=== PATIENT | male | born 1965 | race Caucasian/White ===

== ENCOUNTER 2016-09-10 14:27 | Inpatient (IN) | payer OTHER ==
[~2016-09-10] VITALS: Ht 167.6 cm; Wt 68.0 kg
[~2016-09-10 14:27] MED LIST: DOCUSATE SODIU100 M3 PO; ELIQUIS2.5 M1 PO; FERROUS SULFAT325 M3 PO; HYDROCODON-ACE1 EAC2 PO; IBUPROFEN600 M1 PO; MIRALAX119 GM PO; MORPHINE SULFAT15 M3 PO; OMEPRAZOLE40 M1 PO; SENNA-TIME S T1 EACH PO; TRAMADOL HCL50 M1 PO; TYLENOL325 M1 PO
--- NOTE | 2016-09-10 14:57 | NUR ---
PT TO ED WITH FAMILY, PER "HE PASSED OUT TWICE". HAD CHEMO THERAPY ON SUNDAY "HE PASSED OUT AT THE DOCTOR OFFICE TOO". CALLED DR REINOSO, TOLD TO COME TO ED. HX VASOVAGAL PER
--- NOTE | 2016-09-10 15:15 | NUR ---
PT TO ROOM4, CHANGED INTO HOSPITAL GOWN, PLACED ON [employer] [address], O2SAT 98% ON RA, PT DENIES ANY SYMPTOMS AT THIS TIME. HANNAH SEVILLA AT BEDSIDE FOR PT EVAL.
[2016-09-10 15:42] LABS: ABSOLUTE BASOPHIL COUNT 0 /CUMM (0.0-0.2); ABSOLUTE EOSINOPHIL COUNT 0 /CUMM (0.0-0.7); ABSOLUTE LYMPH COUNT 1.3 /CUMM (1.2-3.4); ABSOLUTE MONOCYTE COUNT 0.7 /CUMM (0.10-0.60); BASOPHIL % 0.1 % (0.0-2.0); WHITE BLOOD CELL COUNT 9.1 /CUMM (4.8-10.8)
[2016-09-10 15:55] LABS: ABSOLUTE GRANULOCYTE CT 7.1 /CUMM (1.4-6.5); EOSINOPHIL % 0.2 % (0-5); GRANULOCYTE % 78.2 % (42.2-75.2); MEAN CORPUSCULAR HGB 25.6 PG (27.0-31.0); MEAN CORPUSCULAR HGB CONC 31.5 G/DL (33.0-37.0); MEAN CORPUSCULAR VOLUME 81.3 FL (80.0-94.0); MEAN PLATELET VOLUME 5.8 FL (7.4-10.4); PLATELET COUNT 659 /CUMM (130-400); RBC DISTRIBUTION WIDTH 18.6 % (11.5-14.5); RED BLOOD CELL CT 2.63 /CUMM (4.70-6.10)
[2016-09-10 15:57] LABS: HEMATOCRIT 21.4 % (42-52)
--- NOTE | 2016-09-10 15:59 | NUR ---
CRITICAL TEST RESULTS [id number] ALISATristianSUKHI 51 M TESTS AND RESULTS: HEMATOCRIT 6.7 AND HEMOGLOBIN 21.4 Results received and read back by: JANUARY SALOMON Results received date and time: 09/10/16 1559 The following provider was notified of the results, and read the results back: HANNAH SEVILLA Notified date and time: 09/10/16 at 1600
--- NOTE | 2016-09-10 16:24 | NUR ---
IV EST, NS INFUSING PER EMAR. 1ST BC DRAWN AND SENT TO LAB.
[2016-09-10] MEDS ORDERED: MAPAP325 M1 PO (16:31)
--- NOTE | 2016-09-10 17:04 | ED SYNCOPE COMPLAINT ---
History of Present Illness General Chief Complaint: General Adult Stated Complaint: PER " LOC X 2 TODAY" Source: patient, family, old records Exam Limitations: language barrier Vital Signs & Intake/Output Vital Signs & Intake/Output Vital Signs Date Time Temp Pulse Resp B/P Pulse O2 O2 Flow FiO2 Ox Delivery Rate 09/10 1944 99.7 118 18 106/62 98 Room Air 09/10 1806 98.7 94 20 114/64 192 Room Air 09/10 1652 98.9 111 18 102/76 96 09/10 1543 116 16 112/77 98 Room Air 09/10 1542 116 112/77 09/10 1517 98 Room Air 09/10 1455 99.0 113 20 140/81 99 Room Air Room Air Allergies Coded Allergies: NO KNOWN ALLERGIES (01/22/11) Reconcile Medications Acetaminophen (Mapap) 325 MG TABLET 2 TAB PO Q4H PRN PAIN/FEVER (Reported) Triage Note: PT TO ED WITH FAMILY, PER "HE PASSED OUT TWICE". HAD CHEMO THERAPY ON SUNDAY "HE PASSED OUT AT THE DOCTOR OFFICE TOO". CALLED DR EMANUEL, TOLD TO COME TO ED. Triage Nurses Notes Reviewed? yes Timing: recent history Precipitating Factors: lightheadedness Loss of Consciousness: brief (seconds) HPI: 51-year-old male brought into the emergency room for further evaluation after multiple syncopal episodes. Patient was diagnosed with non-small lungs carcinoma back in April 2016. Patient has been undergoing chemotherapy. Patient undergoes chemotherapy once a week for 3 weeks and then has a week off. Patient sees Dr. emanuel over to cancer center in his primary care doctor is Dr. Smith. Patient has had 2 separate syncopal episodes today when he was at the grocery store. He had some preceding lightheaded dizziness and felt like there was a pressure shooting up into his chest to his head. He then had a single episode shortly after the first one. Apparently he had been in Dr. Smith's office the day before and had a syncopal episode there. He denies any chest pain or shortness of breath or dizziness currently. Family reports that he's also been complaining of intermittent headaches at home. (ROEL YOUNG,CAITLYN) Past History Travel History Traveled to [place] past 21 day No Medical History Any Pertinent Medical History? see below for history Neurological: NONE EENT: NONE Cardiovascular: NONE, VASOVAGAL Respiratory: LUNG CA Gastrointestinal: NONE Hepatic: NONE Renal: NONE Musculoskeletal: NONE Psychiatric: NONE Endocrine: NONE Blood Disorders: anemia Cancer(s): lung cancer SEED EXPERT/Reproductive: NONE History of MRSA: No History of VRE: No History of CDIFF: No Surgical History Surgical History: non-contributory Psychosocial History Who do you live with Family Services at Home None What is your primary language Mohawk Tobacco Use: Never used ETOH Use: denies use Illicit Drug Use: denies illicit drug use Family History Hx Contributory? No (CAITLYN MANZANO) Review of Systems Review of Systems Constitutional: Reports: see HPI. EENTM: Reports: no symptoms. Respiratory: Reports: no symptoms. Cardiovascular: Reports: see HPI. GI: Reports: no symptoms. Genitourinary: Reports: no symptoms. Musculoskeletal: Reports: no symptoms. Skin: Reports: no symptoms. Neurological/Psychological: Reports: no symptoms. All Other Systems: Reviewed and Negative (CAITLYN MANZANO) Physical Exam Physical Exam General Appearance: well developed/nourished, alert, awake, mild distress Head: atraumatic, normal appearance Eyes: Bilateral: normal appearance, PERRL, EOMI. Ears, Nose, Throat: normal pharynx, normal ENT inspection, hearing grossly normal Neck: normal inspection, full range of motion Respiratory: normal breath sounds, no respiratory distress Cardiovascular: regular rate/rhythm Back: normal inspection Extremities: normal inspection, normal range of motion Psychiatric: awake, alert, oriented x 3 Cranial Nerves: normal hearing, normal speech, PERRL Motor/Sensory: no motor/sensory deficits Skin: intact, normal color Comments: Rectal exam negative guaiac Core Measures ACS in differential dx? Yes CVA/TIA Diagnosis: No Severe Sepsis Present: No Septic Shock Present: No (CAITLYN MANZANO) Progress Differential Diagnosis: AMI, aortic dissection, aortic valve, drug induced syncope, hyperventilation, orthostatic syncope, other valvular disease, pacemaker malfunction, pericardial tamponade, pulmonary embolus, seizure, sick sinus syndrome, subarachnoid hem., TIA/CVA, vasodepressor syncope, ventricular tach/fib Plan of Care: Orders Procedure Date/time Status Regular Diet 09/11 B Active CBC WITHOUT DIFFERENTIAL 09/11 06 Active CALCIUM 09/11 06 Active BASIC ELECTROLYTES PLUS BUN&CR 09/11 0600 Active CBC WITHOUT DIFFERENTIAL 09/11 0000 Active PHYSICIAN CONSULT 09/11 UNK Active Regular Diet 09/10 D Complete BLOOD PRODUCT PICKUP 09/10 2020 Active Teach/Educate 09/11 1947 Active Pain Treatment and Response 09/11 1947 Active Nutritional Intake, Monitor 09/11 1947 Active Isolation 09/11 1947 Active Patient Care Conference 09/10 194 Active Intake & Output 09/10 1859 Active BLOOD PRODUCT PICKUP 09/10 1800 Active OXYGEN SETUP (GEN) 09/10 175 Active Saline Lock 09/10 175 Active Admit to inpatient 09/10 175 Active Activity/Ambulation 09/10 175 Active Pathway - chart 09/10 175 Active Code Status 09/10 175 Active LEUKOCYTE POOR (PACKED CELLS) 09/10 175 Active Patient Data 09/10 1735 Active TYPE & SCREEN (NOT X-MATCH) 09/10 1607 Active MISTAKE 09/10 1519 Active BLOOD CULTURE 09/10 1519 Active TROPONIN LEVEL 09/10 1519 Complete LACTIC ACID 09/10 1519 Complete COMPREHENSIVE METABOLIC PANEL 09/10 1519 Complete CBC WITHOUT DIFFERENTIAL 09/10 1519 Complete EKG 09/10 1509 Active House Staff 09/10 UNK Active VTE Mechanical Prophylaxis 09/10 UNK Active Vital Signs 09/10 UNK Active MISTAKE 09/10 UNK Active Current Medications Sig/Fernando Start time Last Medication Dose Stop Time Status Admin Acetaminophen 650 MG Q6P PRN 09/10 1745 AC (Tylenol) Laboratory Tests 09/10/16 1819: Lactic Acid Cancelled 09/10/16 1534: Anion Gap 14, Estimated GFR > 60, BUN/Creatinine Ratio 14.0, Glucose 204 H, Lactic Acid 1.6, Calcium 10.5 H, Total Bilirubin 0.3, AST 16 L, ALT 50, Alkaline Phosphatase 199 H, Troponin I < 0.01, Total Protein 6.8, Albumin 3.1 L, Globulin 3.7, Albumin/Globulin Ratio 0.8 L, CBC w Diff NO MAN DIFF REQ, RBC 2.63 L, MCV 81.3, MCH 25.6 L, RDW 18.6 H, MPV 5.8 L, Gran % 78.2 H, Lymphocytes % 13.9 L, Monocytes % 7.6, Eosinophils % 0.2, Basophils % 0.1, Absolute Granulocytes 7.1 H, Absolute Lymphocytes 1.3, Absolute Monocytes 0.7 H, Absolute Eosinophils 0, Absolute Basophils 0, PUBS MCHC 31.5 L Microbiology 09/10 1644 BLOOD: Blood Culture - RECD 09/10 161 BLOOD: Blood Culture - RECD Diagnostic Imaging: Viewed by Me: CT Scan. Discussed w/RAD: CT Scan. Radiology Impression: SERVICE DATE: 09/10/16 EXAM TYPE: CAT - CT HEAD WO IV CONTRAST EXAMINATION: CT HEAD WITHOUT CONTRAST CLINICAL INFORMATION: Headaches. COMPARISON: None TECHNIQUE: Contiguous axial imaging was performed from the skull base to vertex without intravenous administration of contrast. DLP: 601 mGy-cm FINDINGS: There is no evidence of acute intracranial hemorrhage or territorial infarction. No abnormal mass effect or midline shift is seen. Wallace to white matter differentiation is well preserved. No extra-axial fluid collections are identified. The ventricles are normal in size. There is no new abnormal attenuation within the brain parenchyma. Incidental cavum septum pellucidum and cavum vergae. The osseous structures and soft tissues are normal. The mastoid air cells and visualized portions of the paranasal sinuses are well aerated. IMPRESSION: No acute intracranial pathology. DICTATED BY: ROSALIA LEE MD DATE/TIME DICTATED:09/10/161817 TABLE RUNNER:DEANA DATE/TIME TRANSCRIBED:09/10/161817 Initial ED EKG: normal intervals, normal p-waves, normal QRS complex, normal sinus rhythm, rate (107) (CAITLYN MANZANO) Departure Departure Disposition: STILL A PATIENT Condition: Stable Clinical Impression Primary Impression: Symptomatic anemia Secondary Impressions: Dehydration, Syncope due to orthostatic hypotension Referrals: ANDERSON SINGH MD (PCP/Family) Departure Forms: Customer Survey General Discharge Information Admission Note Spoke With: KATHRYN RIBERA MD Documentation of Exam: Documentation of any treatments & extenuating circumstances including Concerns Regarding Discharge (functional status, medication knowledge or non-compliance, living conditions, etc.) that warrant an admission rather than observation: Patient will be admitted to telemetry. Patient will require IV hydration. Spoke with Dr. Mcmahan who is covering for Dr. emanuel from oncology. We will get a dry CT scan of his head. At this time we will hold off on any type of blood transfusion until he has a repeat CVC after the IV hydration. Patient is having multiple syncopal episodes more require cardiac telemetry. It is likely related to orthostatic hypotension. Patient will likely end up requiring a blood transfusion. Patient may require MRI of brain and further evaluation with cardiology/oncology. Patient would do poorly as an outpatient. (CAITLYN MANZANO) PA/CHICKEN CATCHER Co-Sign Statement Statement: ED Attending supervision documentation- [] I saw and evaluated the patient. I have also reviewed all the pertinent lab results and diagnostic results. I agree with the findings and the plan of care as documented in the PA's/CHICKEN CATCHER's documentation. [x] I have reviewed the ED Record and agree with the PA's/CHICKEN CATCHER's documentation. [] Additions or exceptions (if any) to the PAs/CHICKEN CATCHER's note and plan are summarized below: [] (ANGELIKA JONES,GINI Soni) Critical Care Note Critical Care Note Critical Care Time: 30-74 min (35) (CAITLYN MANZANO)
--- NOTE | 2016-09-10 18:06 | NUR ---
PT HAS BED ASSIGNMENT 179-1. RN NOTIFIED.
--- NOTE | 2016-09-10 18:25 | CT SCAN REPORT ---
EXAMINATION: CT HEAD WITHOUT CONTRAST CLINICAL INFORMATION: Headaches. COMPARISON: None TECHNIQUE: Contiguous axial imaging was performed from the skull base to vertex without intravenous administration of contrast. DLP: 601 mGy-cm FINDINGS: There is no evidence of acute intracranial hemorrhage or territorial infarction. No abnormal mass effect or midline shift is seen. Wallace to white matter differentiation is well preserved. No extra-axial fluid collections are identified. The ventricles are normal in size. There is no new abnormal attenuation within the brain parenchyma. Incidental cavum septum pellucidum and cavum vergae. The osseous structures and soft tissues are normal. The mastoid air cells and visualized portions of the paranasal sinuses are well aerated. IMPRESSION: No acute intracranial pathology.
--- NOTE | 2016-09-10 18:26 | History & Physical ---
See Addendum ALTON JONES,SULY 09/10/16 5595: General Information and HPI MD Statement: I have seen and personally examined SUKHI MILLS and documented this H&P. The patient is a 51 year old M who presented with a patient stated chief complaint of [Syncope]. Source of Information: patient, family, EMS Exam Limitations: no limitations History of Present Illness: Patient is a 51 YO M Former smoker (30+ pack yr) with PMH significant for stage IV nonsmall cell lung cancer s/p RT, undergoing chemotherapy currently came to the ER after having a syncopal episode while shopping today. Most of the history is obtained from daughter due to language barrier. She reports patient developed first epidose during outpatient visit to where they were informed that it was vasovagal syncope, instructed to take plenty of fluids, salt and sugar. Today while they were in a grocery store he felt palpiations, dizzy and passed out. He woke up so fast that he fell down once again. He denies any shortness of breath, nausea, headache, sweating before the event, No tonic clonic movements/ tongue biting during the event. After the event he is back to baseline without any confusion. His last chemo was on 09/04/16 - Last Hb 8.2. 2 weeks ago a chemo session is held for 2days due to low H&H. Baseline - fatigued, had fevers and nightsweats at night, walks without any assistance but not for longer distances. Cough with occasional phlegm production. No dyspnea with exertion. Doctors include - for oncology, for pulmonary, PCP. 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 Home Who Do You Live With? spouse, child Services at Home: None Smoking Status: Former Smoker ETOH Use: denies use Illicit Drug Use: denies illicit drug use Functional Ability ADLs Independent: dressing, eating, toileting, bathing. Ambulation: independent IADLs Independent: shopping, housework, finances, food prep, telephone, transportation , medication admin. Review of Systems Review of Systems Constitutional: Reports: see HPI. EENTM: Reports: see HPI. Cardiovascular: Reports: see HPI. Respiratory: Reports: cough. GI: Reports: see HPI. Genitourinary: Reports: see HPI. Comments ROS negative except above. Exam & Diagnostic Data Last 24 Hrs of Vital Signs/I&O Vital Signs Date Time Temp Pulse Resp B/P Pulse O2 O2 Flow FiO2 Ox Delivery Rate 09/10 1945 99.7 118 18 106/62 98 Room Air 09/10 1806 98.7 94 20 114/64 192 Room Air 09/10 1652 98.9 111 18 102/76 96 09/10 1543 116 16 112/77 98 Room Air 09/10 1542 116 112/77 09/10 1517 98 Room Air 09/10 1455 99.0 113 20 140/81 99 Room Air Room Air Intake & Output 09/10 1600 09/10 0800 09/10 0000 Intake Total Output Total Balance Patient 68.039 kg Weight Physical Exam General Appearance Alert, Oriented X3, Cooperative Skin No Rashes HEENT Atraumatic, PERRLA, EOMI Neck Supple Cardiovascular Regular Rate, Normal S1, Normal S2 Lungs Clear to Auscultation, Normal Air Movement Abdomen Normal Bowel Sounds, Soft, No Tenderness Neurological Normal Gait, Normal Speech, Strength at 5/5 X4 Ext Extremities No Clubbing, No Cyanosis, No Edema Last 24 Hrs of Labs/Paul: Laboratory Tests 09/10/16 1819: Lactic Acid Cancelled 09/10/16 1534: Anion Gap 14, Estimated GFR > 60, BUN/Creatinine Ratio 14.0, Glucose 204 H, Lactic Acid 1.6, Calcium 10.5 H, Total Bilirubin 0.3, AST 16 L, ALT 50, Alkaline Phosphatase 199 H, Troponin I < 0.01, Total Protein 6.8, Albumin 3.1 L, Globulin 3.7, Albumin/Globulin Ratio 0.8 L, CBC w Diff NO MAN DIFF REQ, RBC 2.63 L, MCV 81.3, MCH 25.6 L, RDW 18.6 H, MPV 5.8 L, Gran % 78.2 H, Lymphocytes % 13.9 L, Monocytes % 7.6, Eosinophils % 0.2, Basophils % 0.1, Absolute Granulocytes 7.1 H, Absolute Lymphocytes 1.3, Absolute Monocytes 0.7 H, Absolute Eosinophils 0, Absolute Basophils 0, PUBS MCHC 31.5 L Microbiology 09/10 1644 BLOOD: Blood Culture - RECD 09/10 161 BLOOD: Blood Culture - RECD Diagnostic Data Other Results Head CT IMPRESSION: No acute intracranial pathology Assessment/Plan Assessment: Patient is a 51 YO M Former smoker (30+ pack yr) with PMH significant for stage IV nonsmall cell lung cancer s/p RT, undergoing chemotherapy currently came to the ER after having a syncopal episode while shopping today. ER Course Vital Signs Afebrile, HR 118, RR 20, HR 113, BP 140/81mmHg Significant labs H7H 6.7/21.4 Calcium 10.5, ALP 199, AST/ALT - 16/50. blood cultures sent. Plan Syncope * Most probably secondary to anemia from chemotherpay * Telemetry to rule out arrhythmias * Orthostatic vitals * type and crossmatch, 2 units transfusion requested after getting consent history of stage IV nonsmall cell lung cancer * last chemo on 09/04 * Scheduled Qweekly with 1 week gap every 3 weeks * so far underwent 6 cycles * Fever and night sweats at [facility] - continue tylenol * follows DVT prophylaxis * Dc lovenox Code Status * Full Code As Ranked By This Provider Problem List: 1. Symptomatic anemia 2. Syncope due to orthostatic hypotension 3. Dehydration 4. History of right hip hemiarthroplasty 5. Lung cancer metastatic to bone 6. Lytic bone lesion of right femur Core Measures/Miscellaneous Acute Coronary Syndrome ACS Diagnosis: No Cerebrovascular Accident CVA/TIA Diagnosis: No Congestive Heart Failure CHF Diagnosis: No Venous Thromboembolism VTE Risk Factors: Immobility, paresis No Mech VTE prophylaxis d/t: No contraindications No VTE Pharm Prophylaxis d/t: No contraindications VTE Diagnosis: No VTE Type: NONE VTE Confirmed by (Test): NONE Severe Sepsis Severe Sepsis Present: No Septic Shock Septic Shock Present: No Miscellaneous Documentation Attending Case Discussed With: KATHRYN RIBERA MD Primary Care Physician: ANDERSON SINGH MD Patient sees these Specialists Level of Patient Care: Telemetry ROSE ANNE MD 09/10/161914: Resident Review Statement Resident Statement: examined this patient, discussed with internal salesperson, agreed with internal salesperson, discussed with family, reviewed EMR data (avail), reviewed images Other Findings: 51 YO M with a PMH of Metastatic lung cancer diagnosed in Apr 2016 on chemo and radiation therapy, alcohol abuse and former smoker, primary latvian speaking ( daughter helped with interpretation) who presents with complaints of 2 syncopal episodes in the past 1 week. 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 Episodes were brief-lasting only a few seconds to minutes and he denies any seizure activity, palpitation, aura, dizziness, incontinence or confusion prior to or after the episodes. No hx of syncope in the past. ROS was neg except for a prodcutive cough that he has had intermittently since he was daignosed with lung cancer in Apr 2016. He sees Dr. Soriano for chemotherapy. He has had 2 rounds of chemo so far and 10 cycles of radation therapy. His chemo rounds are once a week for 3 weeks, then 1 week off and radiation was daily for 10 days on his Rt hip were he has a tumor deposit. Last Chemo was on Sunday (He is carboplatin and another medication his daughter can't remember). He has a poor appetite and has lost weight and complains of having fevers daily this past week. No vomiting, chest pain, abd pain, diarrhea or shortness of breath. No hx of bleeding from any orifice, guaic Neg in the ER. Last H&H checked in the cancer was >8 last week per his daughter. He is independent with his ADLs at baseline. O/E-he is pale, AAOx3, tachycardic, chest is clear, non-tender abdomen, no pedal edema. Assessement Syncopal episode likely 2/2 low blood volume/anemia vs vasovagal Acute on Chronic Anemia Mild Hypercalcemia Hx of metastatic NSCLC of the lung Plan Admit to Tele to r/o PAF Transfuse 2 units of blood-repeat CBC after transfusion orthostatics IVF hydration Tylenol for pain/fever Courtesy Consult to Dr. Soriano and Dr. Smith Follow attending recommendations Regular diet Full code
--- NOTE | 2016-09-10 18:28 | NUR ---
2ND LITER NS INFUSING PER EMAR.
--- NOTE | 2016-09-10 18:34 | NUR ---
REPORT GIVEN TO ABIMAEL BURK TO TELE. [employer] CALLED FOR TRANSPORTATION.
--- NOTE | 2016-09-10 18:50 | NUR ---
HOUSE STAFF AT BEDSIDE FOR PT EVAL AND CONCENT FOR BLOOD TRANSFUSION.
[2016-09-10 19:45] VITALS: BP 106/62
--- NOTE | 2016-09-10 20:32 | Admission Certification ---
Admission Certification Certification Statement - As attending physician, I certify that at the time of - admission, based on clinical presentation, severity of - symptoms, need for further diagnostic testing and - therapeutic interventions, and risk of adverse outcomes - without in-hospital treatment, in my clinical assessment, - this patient requires an acute hospital stay for a minimum - of two nights or longer. I have also considered psychsocial - factors such as support system, advanced age, financial - issues, cognitive issues, and failed out-patient treatments, - past re-admission history, safety of patient, and lack of - compliance as applicable. Specific rationale supporting this admission is: Syncopal episode in a patient with anemia and treating for lung cancer.
--- NOTE | 2016-09-10 20:35 | PN- Att Addend ---
Attending Addendum Attending Brief Note 51 year old male with history of lung cancer followed by Dr Soriano and Dr Smith on chemotherapy.Today at a store fainted and was brought to the hospital also found to be anemic. will admit monitor on telimetry, transfuse if OK with Dr Soriano monitor labs, gentle hydration. Laboratory Tests 09/10 09/10 1819 1534 Chemistry Sodium (137 - 145 mmol/L) 135 L Potassium (3.5 - 5.1 mmol/L) 4.5 Chloride (98 - 107 mmol/L) 96 L Carbon Dioxide (22 - 30 mmol/L) 24 Anion Gap (5 - 16) 14 BUN (9 - 20 mg/dL) 7 L Creatinine (0.7 - 1.2 mg/dL) 0.5 L Estimated GFR (>60 ml/min) > 60 BUN/Creatinine Ratio (7 - 25 %) 14.0 Glucose (65 - 99 mg/dL) 204 H Lactic Acid (0.7 - 2.1 mmol/L) Cancelled 1.6 Calcium (8.4 - 10.2 mg/dL) 10.5 H Total Bilirubin (0.2 - 1.3 mg/dL) 0.3 AST (17 - 59 U/L) 16 L ALT (21 - 72 U/L) 50 Alkaline Phosphatase (< 127 U/L) 199 H Troponin I (<0.11 ng/ml) < 0.01 Total Protein (6.3 - 8.2 g/dL) 6.8 Albumin (3.5 - 5.0 g/dL) 3.1 L Globulin (1.9 - 4.2 gm/dL) 3.7 Albumin/Globulin Ratio (1.1 - 2.2 %) 0.8 L Hematology CBC w Diff NO MAN DIFF REQ WBC (4.8 - 10.8 /CUMM) 9.1 RBC (4.70 - 6.10 /CUMM) 2.63 L Hgb (14.0 - 18.0 G/DL) 6.7 *L Hct (42 - 52 %) 21.4 L MCV (80.0 - 94.0 FL) 81.3 MCH (27.0 - 31.0 PG) 25.6 L RDW (11.5 - 14.5 %) 18.6 H Plt Count (130 - 400 /CUMM) 659 H MPV (7.4 - 10.4 FL) 5.8 L Gran % (42.2 - 75.2 %) 78.2 H Lymphocytes % (20.5 - 51.1 %) 13.9 L Monocytes % (1.7 - 9.3 %) 7.6 Eosinophils % (0 - 5 %) 0.2 Basophils % (0.0 - 2.0 %) 0.1 Absolute Granulocytes (1.4 - 6.5 /CUMM) 7.1 H Absolute Lymphocytes (1.2 - 3.4 /CUMM) 1.3 Absolute Monocytes (0.10 - 0.60 /CUMM) 0.7 H Absolute Eosinophils (0.0 - 0.7 /CUMM) 0 Absolute Basophils (0.0 - 0.2 /CUMM) 0 PUBS MCHC (33.0 - 37.0 G/DL) 31.5 L Vital Signs Date Time Temp Pulse Resp B/P Pulse O2 O2 Flow FiO2 Ox Delivery Rate 09/10 1945 99.7 118 18 106/62 98 Room Air 09/10 1806 98.7 94 20 114/64 192 Room Air 09/10 1652 98.9 111 18 102/76 96 09/10 1543 116 16 112/77 98 Room Air 09/10 1542 116 112/77 / 1517 98 Room Air 09/10 1455 99.0 113 20 140/81 99 Room Air Room Air Laboratory Tests 09/10/16 1819: Lactic Acid Cancelled 09/10/16 1534: Anion Gap 14, Estimated GFR > 60, BUN/Creatinine Ratio 14.0, Glucose 204 H, Lactic Acid 1.6, Calcium 10.5 H, Total Bilirubin 0.3, AST 16 L, ALT 50, Alkaline Phosphatase 199 H, Troponin I < 0.01, Total Protein 6.8, Albumin 3.1 L, Globulin 3.7, Albumin/Globulin Ratio 0.8 L, CBC w Diff NO MAN DIFF REQ, RBC 2.63 L, MCV 81.3, MCH 25.6 L, RDW 18.6 H, MPV 5.8 L, Gran % 78.2 H, Lymphocytes % 13.9 L, Monocytes % 7.6, Eosinophils % 0.2, Basophils % 0.1, Absolute Granulocytes 7.1 H, Absolute Lymphocytes 1.3, Absolute Monocytes 0.7 H, Absolute Eosinophils 0, Absolute Basophils 0, PUBS MCHC 31.5 L Microbiology Date/Time Procedure - Status Source Growth 09/10 1644 Blood Culture - RECD BLOOD Orders Procedure Date/time Status Regular Diet 09/11 B Active CBC WITHOUT DIFFERENTIAL 09/11 0600 Active CALCIUM 09/11 0600 Active BASIC ELECTROLYTES PLUS BUN&CR 09/11 0600 Active CBC WITHOUT DIFFERENTIAL 09/11 0000 Active Regular Diet 09/10 D Complete BLOOD PRODUCT PICKUP 09/10 2020 Active Teach/Educate 09/11 1947 Active Pain Treatment and Response 09/11 1947 Active Nutritional Intake, Monitor 09/11 1947 Active Isolation 09/10 194 Active Patient Care Conference 09/10 194 Active Intake & Output 09/10 1859 Active BLOOD PRODUCT PICKUP 09/10 1800 Active OXYGEN SETUP (GEN) 09/10 175 Active Saline Lock 09/10 1756 Active Admit to inpatient 09/10 1756 Active Activity/Ambulation 09/10 175 Active Pathway - chart 09/10 1754 Active Code Status 09/10 1754 Active LEUKOCYTE POOR (PACKED CELLS) 09/10 1753 Active Patient Data 09/10 1735 Active TYPE & SCREEN (NOT X-MATCH) 09/10 1607 Active MISTAKE 09/10 1519 Active BLOOD CULTURE 09/10 1519 Active TROPONIN LEVEL 09/10 1519 Complete LACTIC ACID 09/10 1519 Complete COMPREHENSIVE METABOLIC PANEL 09/10 1519 Complete CBC WITHOUT DIFFERENTIAL 09/10 1519 Complete EKG 09/10 1509 Active House Staff 09/10 UNK Active VTE Mechanical Prophylaxis 09/10 UNK Active Vital Signs 09/10 UNK Active MISTAKE 09/10 UNK Active
--- NOTE | 2016-09-10 22:26 | NUR ---
PT ARRIVED TO FLOOR APPX 1999, A&O X 3, PRIMARILY AZERI SPEAKING WITH FAMILY AT SIDE TO TRANSLATE. LUNG SOUNDS CLEAR, NSR THOUGH TACHYCARDIC IN THE 116 RANGE, 99.7 TEMP, 18 RESP, 106/62 BP. PT STATED HE WAS DUE FOR CHEMO ON SUNDAY AND FAMILY STATED IT WOULD BE HIS ROUND. PT ORIENTED TO ROOM, PLACE ON FLUIDS, AWAITING BLOOD FROM LAB.
[2016-09-11 00:20] VITALS: BP 112/64
[2016-09-11 04:31] LABS: ABSOLUTE BASOPHIL COUNT 0 /CUMM (0.0-0.2); ABSOLUTE EOSINOPHIL COUNT 0 /CUMM (0.0-0.7); ABSOLUTE LYMPH COUNT 1.4 /CUMM (1.2-3.4); ABSOLUTE MONOCYTE COUNT 1.1 /CUMM (0.10-0.60); BASOPHIL % 0.3 % (0.0-2.0); EOSINOPHIL % 0.5 % (0-5); GRANULOCYTE % 66.5 % (42.2-75.2); MEAN CORPUSCULAR HGB 26.6 PG (27.0-31.0); MEAN CORPUSCULAR VOLUME 83.1 FL (80.0-94.0); MEAN PLATELET VOLUME 5.9 FL (7.4-10.4); PLATELET COUNT 602 /CUMM (130-400); RBC DISTRIBUTION WIDTH 17.4 % (11.5-14.5); RED BLOOD CELL CT 3.26 /CUMM (4.70-6.10); WHITE BLOOD CELL COUNT 7.5 /CUMM (4.8-10.8)
[2016-09-11 04:35] LABS: HEMATOCRIT 27.1 % (42-52)
--- NOTE | 2016-09-11 07:20 | PN- Housestaff ---
Subjective Follow-up For: Vasovagal syncope Sensitive carotids Tele-Events Since Last Visit: sinus tachy - 113-122, no overnight events Subjective: I saw and examined the patient today morning He is sitting and having breakfast, denies any further episodes of syncope. However when and - massaged the carotids - we are able to appreciate asystole and several pauses in the screen. --> "VASOVAGAL" Review of Systems Constitutional: Reports: see HPI. EENTM: Reports: see HPI. Comments: ROS negative except the above. Objective Last 24 Hrs of Vital Signs/I&O Vital Signs Date Time Temp Pulse Resp B/P Pulse O2 O2 Flow FiO2 Ox Delivery Rate 09/11 0020 99.0 118 18 112/64 98 Room Air 09/10 1945 99.7 118 18 106/62 98 Room Air 09/10 1806 98.7 94 20 114/64 192 Room Air 09/10 1652 98.9 111 18 102/76 96 09/10 1543 116 16 112/77 98 Room Air 09/10 1542 116 112/77 09/10 1517 98 Room Air 09/10 1455 99.0 113 20 140/81 99 Room Air Room Air Intake & Output 09/11 0800 04/ 0000 09/10 1600 Intake Total 950 1989 Output Total 1800 Balance -850 1989 Intake, Blood 350 Product Intake, IV 250 1760 Intake, Oral 350 229 Number 0 Bowel Movements Output, Urine 1800 Patient 68.039 kg 68.039 kg Weight Physical Exam General Appearance: Alert, Oriented X3, Cooperative Skin: No Rashes, No Breakdown HEENT: Atraumatic, PERRLA Neck: Supple, No JVD, sensitive carotids Cardiovascular: Normal S1, Normal S2, No Murmurs Lungs: Clear to Auscultation, Normal Air Movement Abdomen: Normal Bowel Sounds, Soft, No Tenderness Neurological: Normal Speech, Strength at 5/5 X4 Ext, Sensation Intact Extremities: No Clubbing, No Cyanosis, No Edema Current Medications: Current Medications Sig/Fernando Start time Last Medication Dose Route Stop Time Status Admin Acetaminophen 650 MG Q6P PRN 09/10 1745 AC PO Sodium Chloride 1,000 ML Q20H 09/10 1830 AC 09/10 IV 2007 Sodium Chloride 1,000 ML BOLUS ONE 09/10 1815 DC 09/10 IV 09/10 1914 1828 Sodium Chloride 1,000 ML BOLUS ONE 09/10 1600 DC 09/10 IV 09/10 1659 1623 Last 24 Hrs of Lab/Paul Results Last 24 Hrs of Labs/Mics: Laboratory Tests 09/11/16 0420: Anion Gap 10, Estimated GFR > 60, BUN/Creatinine Ratio 7.5, Calcium 9.5, Iron 26 L, TIBC 182 L, Ferritin 995.0 H, CBC w Diff NO MAN DIFF REQ, RBC 3.26 L, MCV 83.1, MCH 26.6 L, RDW 17.4 H, MPV 5.9 L, Gran % 66.5, Lymphocytes % 18.5 L, Monocytes % 14.2 H, Eosinophils % 0.5, Basophils % 0.3, Absolute Granulocytes 5.0, Absolute Lymphocytes 1.4, Absolute Monocytes 1.1 H, Absolute Eosinophils 0 , Absolute Basophils 0, PUBS MCHC 32.0 L 09/11/16 0400: CBC w Diff Cancelled, WBC Cancelled, RBC Cancelled, Hgb Cancelled, Hct Cancelled , MCV Cancelled, MCH Cancelled, RDW Cancelled, Plt Count Cancelled, MPV Cancelled, PUBS MCHC Cancelled 09/10/16 1819: Lactic Acid Cancelled 09/10/16 1534: Anion Gap 14, Estimated GFR > 60, BUN/Creatinine Ratio 14.0, Glucose 204 H, Lactic Acid 1.6, Calcium 10.5 H, Total Bilirubin 0.3, AST 16 L, ALT 50, Alkaline Phosphatase 199 H, Troponin I < 0.01, Total Protein 6.8, Albumin 3.1 L, Globulin 3.7, Albumin/Globulin Ratio 0.8 L, CBC w Diff NO MAN DIFF REQ, RBC 2.63 L, MCV 81.3, MCH 25.6 L, RDW 18.6 H, MPV 5.8 L, Gran % 78.2 H, Lymphocytes % 13.9 L, Monocytes % 7.6, Eosinophils % 0.2, Basophils % 0.1, Absolute Granulocytes 7.1 H, Absolute Lymphocytes 1.3, Absolute Monocytes 0.7 H, Absolute Eosinophils 0, Absolute Basophils 0, PUBS MCHC 31.5 L Microbiology 09/10 1644 BLOOD: Blood Culture - RES 09/10 1616 BLOOD: Blood Culture - RES Lines/Diet/Fluids Lines: peripheral lines Assessment/Plan Assessment: Patient is a 51 YO M Former smoker (30+ pack yr) with PMH significant for stage IV nonsmall cell lung cancer s/p RT, undergoing chemotherapy currently came to the ER after having a syncopal episode while shopping today. ER Course Vital Signs Afebrile, HR 118, RR 20, HR 113, BP 140/81mmHg Significant labs H7H 6.7/21.4 Calcium 10.5, ALP 199, AST/ALT - 16/50. blood cultures sent. Plan Syncope * Intially thought secondary to anemia/dehydration, but today conformied Vasovagal with evident pauses on carotid massage. * NPO overnight for pacemaker placement tomorrow by . * Continuous telemetry monitoring pending ECHO. * CTA Head and neck didnt show any stenosis, but did show increasing lung mass obstruciting right side leading to post obstructive pneumonitis. * Hb improved to 8.7 after transfusing 2 units. history of stage IV nonsmall cell lung cancer * last chemo on 09/04 - on carboplatin and protein bound paclitaxel weekly regimen * Scheduled once a week with 1 week gap every 3 weeks * so far underwent 2/3 cycles - we will revaluate after 3 cycles. * Fever and night sweats at basliene - continue tylenol * follows DVT prophylaxis * Sc lovenox Code Status * Full Code Problem List: 1. 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 Vasovagal syncope 4. History of right hip hemiarthroplasty Pain Ratin Pain Location: n/a Pain Goal: Pain 4 or less Pain Plan: tylenol prn Tomorrow's Labs & Rationales: cbc to monitor his H&H
--- NOTE | 2016-09-11 07:29 | Cons- Oncology ---
General Information and HPI Consulting Request Date of Consult: 09/11/16 Requested By: KATHRYN RIBERA MD History of Present Illness: 51-year-old man well known to me with stage IV non-small cell lung carcinoma.. Vision has been treated with carboplatin and Abraxane chemotherapy. His recent CBCs have demonstrated anemia. The patient is now admitted with 2 witnessed syncopal episodes not associated with seizure activity. The patient denied chest pain shortness of breath or hemoptysis. Currently he feels well and back to baseline Allergies/Medications Allergies: Coded Allergies: NO KNOWN ALLERGIES (01/22/11) Home Med List: Acetaminophen (Mapap) 325 MG TABLET 2 TAB PO Q4H PRN PAIN/FEVER (Reported) Current Medications: Current Medications Sig/Fernando Start time Last Medication Dose Route Stop Time Status Admin Acetaminophen 650 MG Q6P PRN 09/10 1745 AC PO Sodium Chloride 1,000 ML Q20H 09/10 1830 AC 09/10 IV 2007 Sodium Chloride 1,000 ML BOLUS ONE 09/10 1815 DC 09/10 IV 09/10 1914 1828 Sodium Chloride 1,000 ML BOLUS ONE 09/10 1600 DC / IV 09/10 1659 1623 Review of Systems Review of Systems: Patient denies dizziness or blurred vision now. Patient denies nausea vomiting black stool or change in bowel habits. Patient denies dysuria or hematuria. Patient denies new bone aches or focal neurologic deficit Past History Travel History Traveled to [place] past 21 day No Medical History Blood Transfusion Hx: No Neurological: NONE EENT: NONE Cardiovascular: NONE, VASOVAGAL Respiratory: LUNG CA Gastrointestinal: NONE Hepatic: NONE Renal: NONE Musculoskeletal: NONE Psychiatric: NONE Endocrine: NONE Blood Disorders: anemia Cancer(s): lung cancer LANGUAGE ASST/Reproductive: NONE Surgical History Surgical History: RIGHT HIP REPLACEMENT Psychosocial History Where Do You Live? Home Who Do You Live With? spouse, child Services at Home: None Smoking Status: Former Smoker ETOH Use: denies use Illicit Drug Use: denies illicit drug use Functional Ability ADLs Independent: dressing, eating, toileting, bathing. Ambulation: independent IADLs Independent: shopping, housework, finances, food prep, telephone, transportation , medication admin. Exam & Diagnostic Data Vital Signs and I&O Vital Signs Date Time Temp Pulse Resp B/P Pulse O2 O2 Flow FiO2 Ox Delivery Rate 09/11 0020 99.0 118 18 112/64 98 Room Air 09/10 1945 99.7 118 18 106/62 98 Room Air 09/10 1806 98.7 94 20 114/64 192 Room Air 09/10 1652 98.9 111 18 102/76 96 / 1543 116 16 112/77 98 Room Air 09/10 1542 116 112/77 / 1517 98 Room Air 09/10 1455 99.0 113 20 140/81 99 Room Air Room Air Intake & Output 09/11 0800 09/11 0000 09/10 1600 Intake Total 950 1989 Output Total 1800 Balance -850 1988 Intake, Blood 350 Product Intake, IV 250 1760 Intake, Oral 350 229 Number 0 Bowel Movements Output, Urine 1800 Patient 150 lb 150 lb Weight Gen.: in NAD, patient has documented mildly orthostatic vital signs ENT: Sclera anicteric Chest: Normal respiratory effort, decreased breath sounds Cor: RRR, no extra sounds Abdomen: Soft, bowel sounds present, no tenderness, no rebound Extremities: Without clubbing, cyanosis, or edema Neurology: Alert and oriented 3, no gross deficit Skin: No rashes Last 48 Hours of Lab Results: Laboratory Tests 09/11 09/11 09/10 0420 0400 1819 Chemistry Sodium (137 - 145 mmol/L) 136 L Potassium (3.5 - 5.1 mmol/L) 4.5 Chloride (98 - 107 mmol/L) 101 Carbon Dioxide (22 - 30 mmol/L) 25 Anion Gap (5 - 16) 10 BUN (9 - 20 mg/dL) 3 L Creatinine (0.7 - 1.2 mg/dL) 0.4 L Estimated GFR (>60 ml/min) > 60 BUN/Creatinine Ratio (7 - 25 %) 7.5 Lactic Acid Cancelled Calcium (8.4 - 10.2 mg/dL) 9.5 Hematology CBC w Diff NO MAN DIFF REQ Cancelled WBC (4.8 - 10.8 /CUMM) 7.5 Cancelled RBC (4.70 - 6.10 /CUMM) 3.26 L Cancelled Hgb (14.0 - 18.0 G/DL) 8.7 L Cancelled Hct (42 - 52 %) 27.1 L Cancelled MCV (80.0 - 94.0 FL) 83.1 Cancelled MCH (27.0 - 31.0 PG) 26.6 L Cancelled RDW (11.5 - 14.5 %) 17.4 H Cancelled Plt Count (130 - 400 /CUMM) 602 H Cancelled MPV (7.4 - 10.4 FL) 5.9 L Cancelled Gran % (42.2 - 75.2 %) 66.5 Lymphocytes % (20.5 - 51.1 %) 18.5 L Monocytes % (1.7 - 9.3 %) 14.2 H Eosinophils % (0 - 5 %) 0.5 Basophils % (0.0 - 2.0 %) 0.3 Absolute Granulocytes (1.4 - 6.5 /CUMM) 5.0 Absolute Lymphocytes (1.2 - 3.4 /CUMM) 1.4 Absolute Monocytes (0.10 - 0.60 /CUMM) 1.1 H Absolute Eosinophils (0.0 - 0.7 /CUMM) 0 Absolute Basophils (0.0 - 0.2 /CUMM) 0 PUBS MCHC (33.0 - 37.0 G/DL) 32.0 L Cancelled 09/10 1534 Chemistry Sodium (137 - 145 mmol/L) 135 L Potassium (3.5 - 5.1 mmol/L) 4.5 Chloride (98 - 107 mmol/L) 96 L Carbon Dioxide (22 - 30 mmol/L) 24 Anion Gap (5 - 16) 14 BUN (9 - 20 mg/dL) 7 L Creatinine (0.7 - 1.2 mg/dL) 0.5 L Estimated GFR (>60 ml/min) > 60 BUN/Creatinine Ratio (7 - 25 %) 14.0 Glucose (65 - 99 mg/dL) 204 H Lactic Acid (0.7 - 2.1 mmol/L) 1.6 Calcium (8.4 - 10.2 mg/dL) 10.5 H Total Bilirubin (0.2 - 1.3 mg/dL) 0.3 AST (17 - 59 U/L) 16 L ALT (21 - 72 U/L) 50 Alkaline Phosphatase (< 127 U/L) 199 H Troponin I (<0.11 ng/ml) < 0.01 Total Protein (6.3 - 8.2 g/dL) 6.8 Albumin (3.5 - 5.0 g/dL) 3.1 L Globulin (1.9 - 4.2 gm/dL) 3.7 Albumin/Globulin Ratio (1.1 - 2.2 %) 0.8 L Hematology CBC w Diff NO MAN DIFF REQ WBC (4.8 - 10.8 /CUMM) 9.1 RBC (4.70 - 6.10 /CUMM) 2.63 L Hgb (14.0 - 18.0 G/DL) 6.7 *L Hct (42 - 52 %) 21.4 L MCV (80.0 - 94.0 FL) 81.3 MCH (27.0 - 31.0 PG) 25.6 L RDW (11.5 - 14.5 %) 18.6 H Plt Count (130 - 400 /CUMM) 659 H MPV (7.4 - 10.4 FL) 5.8 L Gran % (42.2 - 75.2 %) 78.2 H Lymphocytes % (20.5 - 51.1 %) 13.9 L Monocytes % (1.7 - 9.3 %) 7.6 Eosinophils % (0 - 5 %) 0.2 Basophils % (0.0 - 2.0 %) 0.1 Absolute Granulocytes (1.4 - 6.5 /CUMM) 7.1 H Absolute Lymphocytes (1.2 - 3.4 /CUMM) 1.3 Absolute Monocytes (0.10 - 0.60 /CUMM) 0.7 H Absolute Eosinophils (0.0 - 0.7 /CUMM) 0 Absolute Basophils (0.0 - 0.2 /CUMM) 0 PUBS MCHC (33.0 - 37.0 G/DL) 31.5 L Imaging/Other Studies: CT-head, noncontrast-negative Assessment/Plan Assessment: 1. Syncope-patient has had 2 witnessed syncopal episodes. Most likely explanation is anemia as with mild dehydration. The patient has no focal neurologic deficit has had no cardiac instability. Patients receive 2 units of red blood cells. Recommend- Continue current management 2. Anemia-reportedly stools were negative for occult blood, and the patient has been anemic due to chemotherapy. Patient has received 2 units of red blood cells thus far Recommend- Check ferritin Follow CBC 3. Stage IV non-small cell lung carcinoma-patient has received 2 out of anticipated 3 cycles of chemotherapy before restaging will be recommended Hopefully patient can be discharged soon Recommendations: .. Consult Acknowledgment - Thank you for your consult request.
[2016-09-11 08:17] VITALS: BP 116/84
--- NOTE | 2016-09-11 09:18 | PN- Att Addend ---
Attending Addendum Attending Brief Note Patient has no complaints this morning General Appearance: Alert, No Acute Distress Skin: Grossly normal HEENT: PEERLA Neck: Supple, No JVD Cardiovascular: Regular Rate, Normal S1, Normal S2, No Murmurs Lungs: Clear to Auscultation, Normal Air Movement Abdomen: Normal Bowel Sounds, Soft, No Tenderness Neurological: Normal Speech, Strength at 5/5 X4 Ext, Cranial Nerves 3-12 NL, Reflexes 2+ Extremities: No Clubbing, No Cyanosis, No Edema Vascular: Normal Pulses Assessment 51-year-old male with history of recently diagnosed lung cancer currently on chemotherapy presenting status post syncopal episodes 2 based on history appears vasovagal. Patient was anemic and orthostatic hypotensive. Anemia is improved with blood transfusions. Plan Repeat orthostatics, May DC IV fluids if negative Check iron studies and replete if necessary Cardiology consult Continue other home meds and supportive care Encourage by mouth fluids Current Medications Sig/Fernando Start time Last Medication Dose Route Stop Time Status Admin Acetaminophen 650 MG Q6P PRN 09/10 1745 AC PO Sodium Chloride 1,000 ML Q20H 09/10 1830 AC / IV 2007 Sodium Chloride 1,000 ML BOLUS ONE 09/10 1815 DC / IV 09/10 1914 1828 Sodium Chloride 1,000 ML BOLUS ONE 09/10 1600 DC / IV 09/10 1659 1623 Laboratory Tests 09/11 09/11 09/10 0420 0400 1819 Chemistry Sodium (137 - 145 mmol/L) 136 L Potassium (3.5 - 5.1 mmol/L) 4.5 Chloride (98 - 107 mmol/L) 101 Carbon Dioxide (22 - 30 mmol/L) 25 Anion Gap (5 - 16) 10 BUN (9 - 20 mg/dL) 3 L Creatinine (0.7 - 1.2 mg/dL) 0.4 L Estimated GFR (>60 ml/min) > 60 BUN/Creatinine Ratio (7 - 25 %) 7.5 Lactic Acid Cancelled Calcium (8.4 - 10.2 mg/dL) 9.5 Hematology CBC w Diff NO MAN DIFF REQ Cancelled WBC (4.8 - 10.8 /CUMM) 7.5 Cancelled RBC (4.70 - 6.10 /CUMM) 3.26 L Cancelled Hgb (14.0 - 18.0 G/DL) 8.7 L Cancelled Hct (42 - 52 %) 27.1 L Cancelled MCV (80.0 - 94.0 FL) 83.1 Cancelled MCH (27.0 - 31.0 PG) 26.6 L Cancelled RDW (11.5 - 14.5 %) 17.4 H Cancelled Plt Count (130 - 400 /CUMM) 602 H Cancelled MPV (7.4 - 10.4 FL) 5.9 L Cancelled Gran % (42.2 - 75.2 %) 66.5 Lymphocytes % (20.5 - 51.1 %) 18.5 L Monocytes % (1.7 - 9.3 %) 14.2 H Eosinophils % (0 - 5 %) 0.5 Basophils % (0.0 - 2.0 %) 0.3 Absolute Granulocytes (1.4 - 6.5 /CUMM) 5.0 Absolute Lymphocytes (1.2 - 3.4 /CUMM) 1.4 Absolute Monocytes (0.10 - 0.60 /CUMM) 1.1 H Absolute Eosinophils (0.0 - 0.7 /CUMM) 0 Absolute Basophils (0.0 - 0.2 /CUMM) 0 PUBS MCHC (33.0 - 37.0 G/DL) 32.0 L Cancelled 09/10 1534 Chemistry Sodium (137 - 145 mmol/L) 135 L Potassium (3.5 - 5.1 mmol/L) 4.5 Chloride (98 - 107 mmol/L) 96 L Carbon Dioxide (22 - 30 mmol/L) 24 Anion Gap (5 - 16) 14 BUN (9 - 20 mg/dL) 7 L Creatinine (0.7 - 1.2 mg/dL) 0.5 L Estimated GFR (>60 ml/min) > 60 BUN/Creatinine Ratio (7 - 25 %) 14.0 Glucose (65 - 99 mg/dL) 204 H Lactic Acid (0.7 - 2.1 mmol/L) 1.6 Calcium (8.4 - 10.2 mg/dL) 10.5 H Total Bilirubin (0.2 - 1.3 mg/dL) 0.3 AST (17 - 59 U/L) 16 L ALT (21 - 72 U/L) 50 Alkaline Phosphatase (< 127 U/L) 199 H Troponin I (<0.11 ng/ml) < 0.01 Total Protein (6.3 - 8.2 g/dL) 6.8 Albumin (3.5 - 5.0 g/dL) 3.1 L Globulin (1.9 - 4.2 gm/dL) 3.7 Albumin/Globulin Ratio (1.1 - 2.2 %) 0.8 L Hematology CBC w Diff NO MAN DIFF REQ WBC (4.8 - 10.8 /CUMM) 9.1 RBC (4.70 - 6.10 /CUMM) 2.63 L Hgb (14.0 - 18.0 G/DL) 6.7 *L Hct (42 - 52 %) 21.4 L MCV (80.0 - 94.0 FL) 81.3 MCH (27.0 - 31.0 PG) 25.6 L RDW (11.5 - 14.5 %) 18.6 H Plt Count (130 - 400 /CUMM) 659 H MPV (7.4 - 10.4 FL) 5.8 L Gran % (42.2 - 75.2 %) 78.2 H Lymphocytes % (20.5 - 51.1 %) 13.9 L Monocytes % (1.7 - 9.3 %) 7.6 Eosinophils % (0 - 5 %) 0.2 Basophils % (0.0 - 2.0 %) 0.1 Absolute Granulocytes (1.4 - 6.5 /CUMM) 7.1 H Absolute Lymphocytes (1.2 - 3.4 /CUMM) 1.3 Absolute Monocytes (0.10 - 0.60 /CUMM) 0.7 H Absolute Eosinophils (0.0 - 0.7 /CUMM) 0 Absolute Basophils (0.0 - 0.2 /CUMM) 0 PUBS MCHC (33.0 - 37.0 G/DL) 31.5 L Vital Signs Date Time Temp Pulse Resp B/P Pulse O2 O2 Flow FiO2 Ox Delivery Rate 09/11 0817 98.8 107 18 116/84 97 Room Air 09/11 0800 Room Air 09/11 0020 99.0 118 18 112/64 98 Room Air 09/10 1945 99.7 118 18 106/62 98 Room Air 09/10 1806 98.7 94 20 114/64 192 Room Air 09/10 1652 98.9 111 18 102/76 96 04 1543 116 16 112/77 98 Room Air 04/ 1542 116 112/77 04/ 1517 98 Room Air / 1455 99.0 113 20 140/81 99 Room Air Room Air
--- NOTE | 2016-09-11 09:47 | NUR ---
0944 DR FUNG AT PT BEDSIDE DOING A CAROTID MASSAGE AND PT HAD A 5.6 SEC PAUSE. PT WAS ASYMPTOMATIC AT THE TIME. WILL CONTINUE TO MONITOR PT.
--- NOTE | 2016-09-11 12:32 | Cons- Cardiology ---
General Information and HPI Consulting Request Date of Consult: 09/11/16 Requested By: KATHRYN RIBERA MD Reason for Consult: Syncope Source of Information: patient, family, old records History of Present Illness: This is a pleasant 51-year-old male with a past medical history non-small cell lung cancer on outpatient chemotherapy with prior radiation therapy, previous smoker, reported prior seizure, and anemia who presents to [facility] following an episode of recurrent syncope. The patient's family including his daughter were present during my interview it helped provide some history in translation. Of note the patient was in Dr. Smith's office last week and had a significant episode of presyncope while being examined. He was ambulating well this weekend and had an episode of full syncope while ambulating in the grocery store. This was precipitated with a feeling of the dizziness and "feeling flushed". He suffered a brief loss of consciousness and then apparently fell down again when he tried to stand up. Reported no associated chest pain, palpitations, or dyspnea. He normally ambulates without exertional symptoms. No reported postictal state or bowel/bladder incontinence. Patient was noted to be anemic on admission. Today the patient had a 6 second pauses on telemetry during carotid exam/massage. During this episode he felt very lightheaded but did not lose consciousness this morning. Allergies/Medications Allergies: Coded Allergies: NO KNOWN ALLERGIES (01/22/11) Home Med List: Acetaminophen (Mapap) 325 MG TABLET 2 TAB PO Q4H PRN PAIN/FEVER (Reported) Current Medications: Current Medications Sig/Fernando Start time Last Medication Dose Route Stop Time Status Admin Acetaminophen 650 MG Q6P PRN 09/10 1745 AC PO Sodium Chloride 1,000 ML Q20H 09/10 1830 AC / IV 2007 Sodium Chloride 1,000 ML BOLUS ONE 09/10 1815 DC / IV 09/10 1914 1828 Sodium Chloride 1,000 ML BOLUS ONE 09/10 1600 DC / IV 09/10 1659 1623 Review of Systems Review of Systems: Review of systems as per HPI. The remainder of a 10 point review of systems was reviewed and was otherwise negative. 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 Home Who Do You Live With? spouse, child Services at Home: None Smoking Status: Former Smoker ETOH Use: denies use Illicit Drug Use: denies illicit drug use Functional Ability ADLs Independent: dressing, eating, toileting, bathing. Ambulation: independent IADLs Independent: shopping, housework, finances, food prep, telephone, transportation , medication admin. Exam & Diagnostic Data Vital Signs and I&O Vital Signs Date Time Temp Pulse Resp B/P Pulse O2 O2 Flow FiO2 Ox Delivery Rate 09/11 08 98.8 107 18 116/84 97 Room Air 09/11 0800 Room Air 09/11 0020 99.0 118 18 112/64 98 Room Air 09/10 1945 99.7 118 18 106/62 98 Room Air 09/10 1806 98.7 94 20 114/64 192 Room Air 09/10 1652 98.9 111 18 102/76 96 09/10 1543 116 16 112/77 98 Room Air 09/10 1542 116 112/77 09/10 1517 98 Room Air 09/10 1455 99.0 113 20 140/81 99 Room Air Room Air Intake & Output 09/11 1600 09/11 0800 09/11 0000 09/10 1600 09/10 0800 / 0000 Intake Total 950 1989 Output Total 1800 Balance -850 1989 Intake, Blood 350 Product Intake, IV 250 1760 Intake, Oral 350 229 Number 0 Bowel Movements Output, Urine 1800 Patient 150 lb 150 lb Weight Physical Exam: General: no apparent distress. Alert. Eyes: No obvious scleral icterus. HEENT: No jugular venous distention or abnormal jugular venous pulsations. Cardiovascular: Normal intensity S1/S2. PMI not grossly displaced. Respiratory: Lungs clear to auscultation bilaterally. Abdomen: Soft, nontender with no guarding or rebound tenderness. Musculoskeletal: No clubbing or cyanosis noted, no edema Skin: warm Neurologic: No gross focal deficits noted. Labs/Paul Results: Laboratory Tests 09/11 09/11 09/10 0420 0400 1819 Chemistry Sodium (137 - 145 mmol/L) 136 L Potassium (3.5 - 5.1 mmol/L) 4.5 Chloride (98 - 107 mmol/L) 101 Carbon Dioxide (22 - 30 mmol/L) 25 Anion Gap (5 - 16) 10 BUN (9 - 20 mg/dL) 3 L Creatinine (0.7 - 1.2 mg/dL) 0.4 L Estimated GFR (>60 ml/min) > 60 BUN/Creatinine Ratio (7 - 25 %) 7.5 Lactic Acid Cancelled Calcium (8.4 - 10.2 mg/dL) 9.5 Iron (49 - 181 ug/dL) 26 L TIBC (261 - 462 ug/dL) 182 L Ferritin (17.9 - 464 ng/mL) 995.0 H Hematology CBC w Diff NO MAN DIFF REQ Cancelled WBC (4.8 - 10.8 /CUMM) 7.5 Cancelled RBC (4.70 - 6.10 /CUMM) 3.26 L Cancelled Hgb (14.0 - 18.0 G/DL) 8.7 L Cancelled Hct (42 - 52 %) 27.1 L Cancelled MCV (80.0 - 94.0 FL) 83.1 Cancelled MCH (27.0 - 31.0 PG) 26.6 L Cancelled RDW (11.5 - 14.5 %) 17.4 H Cancelled Plt Count (130 - 400 /CUMM) 602 H Cancelled MPV (7.4 - 10.4 FL) 5.9 L Cancelled Gran % (42.2 - 75.2 %) 66.5 Lymphocytes % (20.5 - 51.1 %) 18.5 L Monocytes % (1.7 - 9.3 %) 14.2 H Eosinophils % (0 - 5 %) 0.5 Basophils % (0.0 - 2.0 %) 0.3 Absolute Granulocytes (1.4 - 6.5 /CUMM) 5.0 Absolute Lymphocytes (1.2 - 3.4 /CUMM) 1.4 Absolute Monocytes (0.10 - 0.60 /CUMM) 1.1 H Absolute Eosinophils (0.0 - 0.7 /CUMM) 0 Absolute Basophils (0.0 - 0.2 /CUMM) 0 PUBS MCHC (33.0 - 37.0 G/DL) 32.0 L Cancelled 09/10 1534 Chemistry Sodium (137 - 145 mmol/L) 135 L Potassium (3.5 - 5.1 mmol/L) 4.5 Chloride (98 - 107 mmol/L) 96 L Carbon Dioxide (22 - 30 mmol/L) 24 Anion Gap (5 - 16) 14 BUN (9 - 20 mg/dL) 7 L Creatinine (0.7 - 1.2 mg/dL) 0.5 L Estimated GFR (>60 ml/min) > 60 BUN/Creatinine Ratio (7 - 25 %) 14.0 Glucose (65 - 99 mg/dL) 204 H Lactic Acid (0.7 - 2.1 mmol/L) 1.6 Calcium (8.4 - 10.2 mg/dL) 10.5 H Total Bilirubin (0.2 - 1.3 mg/dL) 0.3 AST (17 - 59 U/L) 16 L ALT (21 - 72 U/L) 50 Alkaline Phosphatase (< 127 U/L) 199 H Troponin I (<0.11 ng/ml) < 0.01 Total Protein (6.3 - 8.2 g/dL) 6.8 Albumin (3.5 - 5.0 g/dL) 3.1 L Globulin (1.9 - 4.2 gm/dL) 3.7 Albumin/Globulin Ratio (1.1 - 2.2 %) 0.8 L Hematology CBC w Diff NO MAN DIFF REQ WBC (4.8 - 10.8 /CUMM) 9.1 RBC (4.70 - 6.10 /CUMM) 2.63 L Hgb (14.0 - 18.0 G/DL) 6.7 *L Hct (42 - 52 %) 21.4 L MCV (80.0 - 94.0 FL) 81.3 MCH (27.0 - 31.0 PG) 25.6 L RDW (11.5 - 14.5 %) 18.6 H Plt Count (130 - 400 /CUMM) 659 H MPV (7.4 - 10.4 FL) 5.8 L Gran % (42.2 - 75.2 %) 78.2 H Lymphocytes % (20.5 - 51.1 %) 13.9 L Monocytes % (1.7 - 9.3 %) 7.6 Eosinophils % (0 - 5 %) 0.2 Basophils % (0.0 - 2.0 %) 0.1 Absolute Granulocytes (1.4 - 6.5 /CUMM) 7.1 H Absolute Lymphocytes (1.2 - 3.4 /CUMM) 1.3 Absolute Monocytes (0.10 - 0.60 /CUMM) 0.7 H Absolute Eosinophils (0.0 - 0.7 /CUMM) 0 Absolute Basophils (0.0 - 0.2 /CUMM) 0 PUBS MCHC (33.0 - 37.0 G/DL) 31.5 L Diagnostic Data EKG Results Twelve-lead ECG tracing was personally reviewed and shows sinus tachycardia at 107 bpm with no evidence of heart block Other Results Head CT IMPRESSION: No acute intracranial pathology. Telemetry tracings were personally reviewed and shows sinus rhythm within approximately 6 second sinus pause Assessment/Plan Assessment/Plan 1. Recurrent presyncope/syncope likely due to prolonged sinus pauses with carotid baroreceptor hypersensitivity 2. Stage IV non-small cell lung cancer undergoing chemotherapy 3. Acute on chronic anemia 4. Sinus tachycardia likely due to anemia with a component of dehydration It was initially felt the patient's recurrent presyncope/syncope was likely due to anemia and orthostasis/dehydration but during carotid massage today the patient had a 6 second prolonged sinus pause with presyncope (despite fluid resuscitation/transfusion). Of note the patient had a similar episode in Dr. Smith's office recently during examination of his neck. Very likely that carotid baroreceptor hypersensitivity contributed to the recent episodes. It is common for this to occur with right-sided carotid massage as this results in the greatest suppression of the sinus node. I had an extensive discussion with the patient and his family and after discussion about risks/benefits/alternatives we have decided to proceed with the permanent pacemaker to help prevent recurrent episodes in the future. The patient should be kept nothing by mouth after midnight for likely permanent pacemaker implant by Dr. Chapin tomorrow. Echocardiogram is currently pending. Patient should be maintained on continuous telemetry without interruption for the time being. Tirso Yin MD [facility] Consult Acknowledgment - Thank you for your consult request.
--- NOTE | 2016-09-11 13:14 | CT SCAN REPORT ---
CT ANGIOGRAM NECK WITH CONTRAST CT ANGIOGRAM BRAIN WITH CONTRAST CLINICAL INFORMATION: Asystole on carotid massage. Orthostatic hypotension. COMPARISON: Head CT 09/10/2016. Chest CT 04/28/2016. TECHNIQUE: Test bolus sequences followed by intravenous administration 100 mL of Ultravist-370. Helical imaging was performed in the axial plane from the thoracic inlet to the skull vertex. Delayed postcontrast imaging of the head was also performed. The data was processed at the reliability technologist workstation for generation of MIP sequences. Angled MIPs and volume rendered reformatted images were also generated at an offline 3D workstation. Stenoses are assessed in accordance with NASCET criteria unless otherwise indicated. FINDINGS: BRAIN: There is no pathologic intracranial enhancement. Cavum septum pellucidum at vergae. There is no intracranial hemorrhage, hydrocephalus, extra-axial surface collection, midline shift, or other herniation pattern. Wallace to white matter differentiation is diffusely maintained without evidence of an evolved acute territorial infarct. The basilar cisterns are preserved. No significant soft tissue abnormality. No acute osseous abnormality. The paranasal sinuses and the mastoid air cells are well-aerated. CERVICAL SOFT TISSUES AND LUNG APICES: Partially imaged large right upper hilar mass has increased in size, currently measuring up to 7.2 cm AP by 5.6 cm TV compared to 3.5 cm x 2.4 cm on the most recently available chest CT from 04/28/2016. The mass results in similar obstruction of the right upper lobar bronchus and more distal right upper lobe bronchioles. The mass continues to encase multiple right upper lobe segmental pulmonary arteries which are centrally patent and distally limitedly assessed on this vascular study timed to assess the cervical and intracranial arterial vasculature. Partially imaged subcarinal and right paratracheal lymph nodes have increased in size. The right upper paratracheal lymph node measures 1.7 cm x 1.2 cm compared to 0.9 cm previously. Within the neck there is no cervical lymphadenopathy. Orbital soft tissues are normal. The parotid glands and submandibular glands are normal. Thyroid gland obscured by streak artifact. There is a coarse calcification within the anterior aspect of the right thyroid lobe. No superficial mucosal space lesion is identified. Periapical lucency associated with the residual right mandibular molars. There is stable sclerosis involving the right first rib. Multilevel cervical spondylosis that is greatest at the C5-C6 and C6-C7 levels. ARCH ANATOMY: There is a classic 3 vessel configuration of the aortic arch. The vertebral arteries are codominant. The left vertebral artery origin in the left common carotid artery origin are not diagnostically assessed secondary to significant streak artifact from dense contrast opacification of the left venous system. NECK CTA: Both vertebral arteries are widely patent throughout their extracranial cervical course. Both common and internal carotid arteries are normal in course and caliber. There is atherosclerotic calcification of the carotid bifurcations bilaterally without significant stenosis by NASCET criteria. BRAIN CTA: Variant split of the left vertebral artery intradurally at the level of the PICA origin which rejoins just proximal to the vertebrobasilar confluence. The anterior and posterior intracranial arterial circulations remain widely patent without significant arterial stenosis and without acute arterial occlusion. There are no aneurysms. IMPRESSION: - No acute intracranial findings. - No significant arterial stenoses and no acute arterial occlusions within the head or neck. Left vertebral artery and left common carotid artery origins are not diagnostically assessed secondary to streak artifact from adjacent venous opacification. These vessels are otherwise widely patent. - Partially imaged large right upper hilar mass has increased in size, currently measuring up to 7.2 cm AP by 5.6 cm TV compared to 3.5 cm x 2.4 cm on the most recently available chest CT from 04/28/2016. The mass results in similar obstruction of the right upper lobar bronchus and more distal right upper lobe bronchioles. The mass continues to encase multiple right upper lobe segmental pulmonary arteries which are centrally patent and distally limitedly assessed on this vascular study timed to assess the cervical and intracranial arterial vasculature. A component of postobstructive right upper lobe pneumonitis is suspected. - Progressive subcarinal and right paratracheal mediastinal lymphadenopathy.
--- NOTE | 2016-09-11 13:24 | Cons- Pulmonary ---
General Information and HPI Consulting Request Date of Consult: 09/11/16 Requested By: med team History of Present Illness: This is a pleasant 51-year-old male with a past medical history non-small cell lung cancer on outpatient chemotherapy with prior radiation therapy, previous smoker, reported prior seizure, and anemia who presents to [facility] following an episode of recurrent syncope. The patient's family including his daughter were present during my interview it helped provide some history in translation. Of note the patient was in my office last week and had a significant episode of presyncope while being examined. He was ambulating well this weekend and had an episode of full syncope while ambulating in the grocery store. This was precipitated with a feeling of the dizziness and "feeling flushed". He suffered a brief loss of consciousness and then apparently fell down again when he tried to stand up. Reported no associated chest pain, palpitations, or dyspnea. He normally ambulates without exertional symptoms. No reported postictal state or bowel/ bladder incontinence. Patient was noted to be anemic on admission. Today the patient had a 6 second pauses on telemetry during carotid exam/massage by me . During this episode he felt very lightheaded but did not lose consciousness this morning. 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 Home Who Do You Live With? spouse, child Services at Home: None Smoking Status: Former Smoker ETOH Use: denies use Illicit Drug Use: denies illicit drug use Functional Ability ADLs Independent: dressing, eating, toileting, bathing. Ambulation: independent IADLs Independent: shopping, housework, finances, food prep, telephone, transportation , medication admin. Exam & Diagnostic Data Last 24 Hrs of Vital Signs/I&O Vital Signs Date Time Temp Pulse Resp B/P Pulse O2 O2 Flow FiO2 Ox Delivery Rate 09/11 0817 98.8 107 18 116/84 97 Room Air 09/11 0800 Room Air 09/11 0020 99.0 118 18 112/64 98 Room Air 09/10 1945 99.7 118 18 106/62 98 Room Air 09/10 1806 98.7 94 20 114/64 192 Room Air 09/10 1652 98.9 111 18 102/76 96 09/10 1543 116 16 112/77 98 Room Air 09/10 1542 116 112/77 09/10 1517 98 Room Air 09/10 1455 99.0 113 20 140/81 99 Room Air Room Air Intake & Output 09/11 1600 09/11 0800 04 0000 Intake Total 950 1988 Output Total 1800 Balance -850 1988 Intake, Blood 350 Product Intake, IV 250 1760 Intake, Oral 350 229 Number 0 Bowel Movements Output, Urine 1800 Patient 150 lb Weight Laboratory Tests 09/11 09/11 09/10 0420 0400 1819 Chemistry Sodium (137 - 145 mmol/L) 136 L Potassium (3.5 - 5.1 mmol/L) 4.5 Chloride (98 - 107 mmol/L) 101 Carbon Dioxide (22 - 30 mmol/L) 25 Anion Gap (5 - 16) 10 BUN (9 - 20 mg/dL) 3 L Creatinine (0.7 - 1.2 mg/dL) 0.4 L Estimated GFR (>60 ml/min) > 60 BUN/Creatinine Ratio (7 - 25 %) 7.5 Lactic Acid Cancelled Calcium (8.4 - 10.2 mg/dL) 9.5 Iron (49 - 181 ug/dL) 26 L TIBC (261 - 462 ug/dL) 182 L Ferritin (17.9 - 464 ng/mL) 995.0 H Hematology CBC w Diff NO MAN DIFF REQ Cancelled WBC (4.8 - 10.8 /CUMM) 7.5 Cancelled RBC (4.70 - 6.10 /CUMM) 3.26 L Cancelled Hgb (14.0 - 18.0 G/DL) 8.7 L Cancelled Hct (42 - 52 %) 27.1 L Cancelled MCV (80.0 - 94.0 FL) 83.1 Cancelled MCH (27.0 - 31.0 PG) 26.6 L Cancelled RDW (11.5 - 14.5 %) 17.4 H Cancelled Plt Count (130 - 400 /CUMM) 602 H Cancelled MPV (7.4 - 10.4 FL) 5.9 L Cancelled Gran % (42.2 - 75.2 %) 66.5 Lymphocytes % (20.5 - 51.1 %) 18.5 L Monocytes % (1.7 - 9.3 %) 14.2 H Eosinophils % (0 - 5 %) 0.5 Basophils % (0.0 - 2.0 %) 0.3 Absolute Granulocytes (1.4 - 6.5 /CUMM) 5.0 Absolute Lymphocytes (1.2 - 3.4 /CUMM) 1.4 Absolute Monocytes (0.10 - 0.60 /CUMM) 1.1 H Absolute Eosinophils (0.0 - 0.7 /CUMM) 0 Absolute Basophils (0.0 - 0.2 /CUMM) 0 PUBS MCHC (33.0 - 37.0 G/DL) 32.0 L Cancelled / 1534 Chemistry Sodium (137 - 145 mmol/L) 135 L Potassium (3.5 - 5.1 mmol/L) 4.5 Chloride (98 - 107 mmol/L) 96 L Carbon Dioxide (22 - 30 mmol/L) 24 Anion Gap (5 - 16) 14 BUN (9 - 20 mg/dL) 7 L Creatinine (0.7 - 1.2 mg/dL) 0.5 L Estimated GFR (>60 ml/min) > 60 BUN/Creatinine Ratio (7 - 25 %) 14.0 Glucose (65 - 99 mg/dL) 204 H Lactic Acid (0.7 - 2.1 mmol/L) 1.6 Calcium (8.4 - 10.2 mg/dL) 10.5 H Total Bilirubin (0.2 - 1.3 mg/dL) 0.3 AST (17 - 59 U/L) 16 L ALT (21 - 72 U/L) 50 Alkaline Phosphatase (< 127 U/L) 199 H Troponin I (<0.11 ng/ml) < 0.01 Total Protein (6.3 - 8.2 g/dL) 6.8 Albumin (3.5 - 5.0 g/dL) 3.1 L Globulin (1.9 - 4.2 gm/dL) 3.7 Albumin/Globulin Ratio (1.1 - 2.2 %) 0.8 L Hematology CBC w Diff NO MAN DIFF REQ WBC (4.8 - 10.8 /CUMM) 9.1 RBC (4.70 - 6.10 /CUMM) 2.63 L Hgb (14.0 - 18.0 G/DL) 6.7 *L Hct (42 - 52 %) 21.4 L MCV (80.0 - 94.0 FL) 81.3 MCH (27.0 - 31.0 PG) 25.6 L RDW (11.5 - 14.5 %) 18.6 H Plt Count (130 - 400 /CUMM) 659 H MPV (7.4 - 10.4 FL) 5.8 L Gran % (42.2 - 75.2 %) 78.2 H Lymphocytes % (20.5 - 51.1 %) 13.9 L Monocytes % (1.7 - 9.3 %) 7.6 Eosinophils % (0 - 5 %) 0.2 Basophils % (0.0 - 2.0 %) 0.1 Absolute Granulocytes (1.4 - 6.5 /CUMM) 7.1 H Absolute Lymphocytes (1.2 - 3.4 /CUMM) 1.3 Absolute Monocytes (0.10 - 0.60 /CUMM) 0.7 H Absolute Eosinophils (0.0 - 0.7 /CUMM) 0 Absolute Basophils (0.0 - 0.2 /CUMM) 0 PUBS MCHC (33.0 - 37.0 G/DL) 31.5 L Microbiology Date/Time Procedure - Status Source Growth 09/10 1644 Blood Culture - RES BLOOD 09/10 1616 Blood Culture - RES BLOOD Last 48 Hrs of Labs/Paul: Laboratory Tests 09/11/16 0420: Anion Gap 10, Estimated GFR > 60, BUN/Creatinine Ratio 7.5, Calcium 9.5, Iron 26 L, TIBC 182 L, Ferritin 995.0 H, CBC w Diff NO MAN DIFF REQ, RBC 3.26 L, MCV 83.1, MCH 26.6 L, RDW 17.4 H, MPV 5.9 L, Gran % 66.5, Lymphocytes % 18.5 L, Monocytes % 14.2 H, Eosinophils % 0.5, Basophils % 0.3, Absolute Granulocytes 5.0, Absolute Lymphocytes 1.4, Absolute Monocytes 1.1 H, Absolute Eosinophils 0 , Absolute Basophils 0, PUBS MCHC 32.0 L 09/11/16 0400: CBC w Diff Cancelled, WBC Cancelled, RBC Cancelled, Hgb Cancelled, Hct Cancelled , MCV Cancelled, MCH Cancelled, RDW Cancelled, Plt Count Cancelled, MPV Cancelled, PUBS MCHC Cancelled 09/10/16 1819: Lactic Acid Cancelled 09/10/16 1534: Anion Gap 14, Estimated GFR > 60, BUN/Creatinine Ratio 14.0, Glucose 204 H, Lactic Acid 1.6, Calcium 10.5 H, Total Bilirubin 0.3, AST 16 L, ALT 50, Alkaline Phosphatase 199 H, Troponin I < 0.01, Total Protein 6.8, Albumin 3.1 L, Globulin 3.7, Albumin/Globulin Ratio 0.8 L, CBC w Diff NO MAN DIFF REQ, RBC 2.63 L, MCV 81.3, MCH 25.6 L, RDW 18.6 H, MPV 5.8 L, Gran % 78.2 H, Lymphocytes % 13.9 L, Monocytes % 7.6, Eosinophils % 0.2, Basophils % 0.1, Absolute Granulocytes 7.1 H, Absolute Lymphocytes 1.3, Absolute Monocytes 0.7 H, Absolute Eosinophils 0, Absolute Basophils 0, PUBS MCHC 31.5 L Assessment/Plan Impression/Plan: Physical Exam: General: no apparent distress. Alert. Eyes: No obvious scleral icterus. HEENT: No jugular venous distention or abnormal jugular venous pulsations. Cardiovascular: Normal intensity S1/S2. PMI not grossly displaced. Respiratory: Lungs clear to auscultation bilaterally. Abdomen: Soft, nontender with no guarding or rebound tenderness. Musculoskeletal: No clubbing or cyanosis noted, no edema Skin: warm Neurologic: No gross focal deficits noted. IMPRESSION This is a gentleman with stage IV non-small cell lung cancer with metastasis to the hip with acute on chronic anemia, recent chemotherapy, Now has Recurrent syncope with significant pause Ongoing treatment for lung cancer Carotid massage exaggerating his recurrent syncope No significant stenosis of the carotid artery Right hilar large mass which seems to be increasing with right upper lobe obstruction despite rx REduced pulmonary reserve Postobstructive right upper lobe collapse with no bacterial evidence pneumonia Progressive subcarinal right and rt paraTracheal, mediastinal lymphadenopathy despite chemotherapy. Patient is now status post 2 cycles of chemotherapy / after radiation to the hip. RECOMMENDATION Patient might require a pacemaker due to significant pauses Increase hydration if able by mouth discontinue IV fluids Watch his hemoglobin and hematocrit Patient will be getting the imaged for pulmonary pathology after the third course of chemotherapy No need for antibiotics We will follow closely Consult Acknowledgment - Thank you for your consult request.
[2016-09-11 16:29] VITALS: BP 116/76
[2016-09-11 23:31] VITALS: BP 106/62
--- NOTE | 2016-09-11 23:32 | ECHOCARDIOGRAM REPORT ---
SUKHI MILLS Age: 51 : 1965 Gender: M Exam Date: 09/11/2016 18:36 Exam Location: [place] Ht (in): 66 Wt (lb): 150 BSA: 1.79 BP: 106 / 62 Ordering Physician: SULY DANG MD Referring Physician: Rodrigo Yin M.D. Technologist: Nay Espinal [facility] Room Number: [id number] Indications: PRESYNCOPE/SYNCOPE Rhythm: Technical Quality: Good FINDINGS Left Ventricle Left ventricular cavity size normal. Left ventricular wall thickness at upper limits of normal. No obvious regional wall motion abnormalities. Left ventricular ejection fraction is estimated at 60 Right Ventricle Normal right ventricular size and function. Right Atrium Normal right atrial size. Left Atrium Normal left atrial size. Mitral Valve No mitral stenosis. Mild mitral annular calcification. Trace mitral regurgitation. Aortic Valve No aortic stenosis. Trileaflet aortic valve. Tricuspid Valve Structurally normal tricuspid valve. Trace tricuspid regurgitation. Unable to estimate the right ventricular systolic pressure. Pulmonic Valve Pulmonic valve not well visualized, grossly normal. Pericardium Minimal pericardial effusion. Great Vessels Normal size aortic root and proximal ascending aorta. CONCLUSIONS Left ventricular cavity size normal. Left ventricular wall thickness at upper limits of normal. No obvious regional wall motion abnormalities. Left ventricular ejection fraction is estimated at 60 %. Normal right ventricular size and function. Unable to estimate the right ventricular systolic pressure. Minimal pericardial effusion. Rodrigo Yin M.D. (Electronically Signed) Final Date: 11 September 2016 23:32 MEASUREMENTS (Male / Female) Normal Values 2D ECHO LV Diastolic Diameter PLAX 4.2 cm 4.2 - 5.9 / 3.9 - 5.3 cm LV Systolic Diameter PLAX 2.7 cm 2.1 - 4.0 cm LV Fractional Shortening PLAX 35.7 % 25 - 46 % LV Ejection Fraction 2D Teich 65.6 % IVS Diastolic Thickness 1.2 cm LVPW Diastolic Thickness 1.2 cm LV Relative Wall Thickness 0.6 RV Internal Dim ED PLAX 2.6 cm 1.9 - 3.8 cm LVOT Diameter 1.9 cm Aortic Root Diameter 3.1 cm LA Systolic Diameter LX 3.1 cm 3.0 - 4.0 / 2.7 - 3.8 cm LA Volume 39.0 cm 18 - 58 / 22 - 52 cm Ascending Aorta Diameter 3.2 cm DOPPLER AV Peak Velocity 176.0 cm/s AV Peak Gradient 12.4 mmHg AV Mean Velocity 125.0 cm/s AV Mean Gradient 7.0 mmHg AV Velocity Time Integral 27.1 cm LVOT Peak Velocity 132.0 cm/s LVOT Peak Gradient 7.0 mmHg LVOT Mean Velocity 89.4 cm/s LVOT Mean Gradient 4.0 mmHg LVOT Velocity Time Integral 19.6 cm LVOT Stroke Volume 55.6 cm AV Area Cont Eq vti 2.1 cm AV Area Cont Eq pk 2.1 cm MV Peak Velocity 118.0 cm/s MV Peak Gradient 5.6 mmHg MV Mean Velocity 82.2 cm/s MV Mean Gradient 3.0 mmHg Mitral E Point Velocity 72.6 cm/s Mitral A Point Velocity 106.0 cm/s Mitral E to A Ratio 0.7 MV PHT Velocity 96.6 cm/s MV Deceleration Bay 387.0 cm/s MV Pressure Half Time 74.9 ms MV Area PHT 2.9 cm MV Deceleration Time 153.0 ms TR Peak Velocity 125.0 cm/s TR Peak Gradient 6.3 mmHg Right Atrial Pressure 5.0 mmHg Pulmonary Artery Systolic Pressu 11.3 mmHg Right Ventricular Systolic Press 11.3 mmHg PV Peak Velocity 93.7 cm/s PV Peak Gradient 3.5 mmHg PV Mean Velocity 68.4 cm/s PV Mean Gradient 2.0 mmHg PV Velocity Time Integral 15.9 cm LV E' Lateral Velocity 8.8 cm/s Mitral E to LV E' Lateral Ratio 8.3 LV E' Septal Velocity 7.1 cm/s Mitral E to LV E' Septal Ratio 10.2
--- NOTE | 2016-09-12 07:17 | PN- Oncology ---
Subjective Subjective: Offers no new major complaints Review of Systems: 12 point review of systems otherwise unchanged Objective Vital Signs and I&Os Vital Signs Date Time Temp Pulse Resp B/P Pulse O2 O2 Flow FiO2 Ox Delivery Rate 09/12 0000 97 Room Air 09/11 2331 97.7 118 18 106/62 96 Room Air 09/11 1629 97.1 111 18 116/76 95 Room Air 09/11 0817 98.8 107 18 116/84 97 Room Air 09/11 0800 Room Air Intake & Output 09/12 0809/12 0000 09/11 1600 09/11 0809/11 0000 09/10 1600 Intake Total 800 1217.5 950 1988 Output Total 480 402 626 5830 Balance -480 450 592.5 -850 1988 Intake, Blood 350 Product Intake, IV 297.5 250 1760 Intake, Oral 800 920 350 229 Number 0 Bowel Movements Output, Urine 480 673 455 7289 Patient 150 lb 150 lb Weight Gen.: in NAD ENT: Sclera anicteric Chest: Normal respiratory effort, decreased breath sounds Cor: RRR, no extra sounds Abdomen: Soft, bowel sounds present, no tenderness, no rebound Extremities: Without clubbing, cyanosis, or edema Neurology: Alert and oriented 3, no gross deficit Current Medications: Current Medications Sig/Fernando Start time Last Medication Dose Route Stop Time Status Admin Acetaminophen 650 MG Q6P PRN 09/10 1745 AC PO Sodium Chloride 1,000 ML Q20H 09/10 1830 DC 09/10 IV 2007 Results Last 24 Hours of Lab Results: Laboratory Tests 09/12 0605 Coagulation PT Pending INR Pending Assessment/Plan Assessment/Recommendations: 1. Syncope-sinus pauses documented Plan- As per cardiology Await echocardiogram report 2. Anemia-improved after transfusion, follow CBC 3. Stage IV cancer-chemotherapy to resume his outpatient
--- NOTE | 2016-09-12 07:36 | PN- Housestaff ---
Subjective Follow-up For: Vasovagal syncope Tele-Events Since Last Visit: Sinus tachy 108-113 At 12:24am in 130's Subjective: I saw and examined the patient today morning. He offers no complaints. Slept well. NPO overnight. Went to pacemaker placement today. Review of Systems Constitutional: Reports: see HPI. Respiratory: Reports: cough. Comments: ROS negative except the above Objective Last 24 Hrs of Vital Signs/I&O Vital Signs Date Time Temp Pulse Resp B/P Pulse O2 O2 Flow FiO2 Ox Delivery Rate 09/12 0000 97 Room Air 09/11 2331 97.7 118 18 106/62 96 Room Air 09/11 1629 97.1 111 18 116/76 95 Room Air 09/11 0817 98.8 107 18 116/84 97 Room Air 09/11 0800 Room Air Intake & Output 09/12 0800 09/12 0000 09/11 1600 Intake Total 800 1217.5 Output Total 480 350 625 Balance -480 450 592.5 Intake, IV 297.5 Intake, Oral 800 920 Output, Urine 480 350 625 Physical Exam General Appearance: Alert, Oriented X3, Cooperative Skin: No Rashes, No Breakdown HEENT: Atraumatic, PERRLA, EOMI Neck: Supple Cardiovascular: Regular Rate, Normal S1, Normal S2, No Murmurs Lungs: Clear to Auscultation, Normal Air Movement Abdomen: Normal Bowel Sounds, Soft, No Tenderness Neurological: Normal Speech, Strength at 5/5 X4 Ext, Normal Tone, Sensation Intact Extremities: No Clubbing, No Cyanosis, No Edema Current Medications: Current Medications Sig/Fernando Start time Last Medication Dose Route Stop Time Status Admin Acetaminophen 650 MG Q6P PRN 09/10 1745 AC PO Sodium Chloride 1,000 ML Q20H 09/10 1830 DC 09/10 IV 2006 Last 24 Hrs of Lab/Paul Results Last 24 Hrs of Labs/Mics: Laboratory Tests 09/12/16 0730: CBC w Diff NO MAN DIFF REQ, RBC 3.42 L, MCV 83.6, MCH 27.0, RDW 18.0 H, MPV 5.9 L, Gran % 70.5, Lymphocytes % 14.6 L, Monocytes % 13.8 H, Eosinophils % 0.5, Basophils % 0.6, Absolute Granulocytes 5.5, Absolute Lymphocytes 1.1 L, Absolute Monocytes 1.1 H, Absolute Eosinophils 0, Absolute Basophils 0, PUBS MCHC 32.3 L 09/12/16 0605: PT Pending, INR Pending Lines/Diet/Fluids Lines: peripheral lines Assessment/Plan Assessment: Patient is a 51 YO M Former smoker (30+ pack yr) with PMH significant for stage IV nonsmall cell lung cancer s/p RT, undergoing chemotherapy currently came to the ER after having a syncopal episode while shopping today. ER Course Vital Signs Afebrile, HR 118, RR 20, HR 113, BP 140/81mmHg Significant labs H7H 6.7/21.4 Calcium 10.5, ALP 199, AST/ALT - 16/50 - back to baseline. blood cultures sent. Plan Syncope - Carotid hypersenstivity syndrome. * Intially thought secondary to anemia/dehydration, but today conformied Vasovagal with evident pauses on carotid massage. * Underwent pacemaker placement today. we will monitor overnight. * Received a single dose of cefazoline before procedure and started on morphine for pain control today. * At this point although patient is tachycardic, it was felt secondary to anemia /dehydration. I think he needs a rate control medication (beta juliane) if it continues. * Continuous telemetry monitoring pending ECHO. * CTA Head and neck didnt show any stenosis, but did show increasing lung mass obstruciting right side leading to post obstructive pneumonitis. * Hb improved to 8.7 after transfusing 2 units. history of stage IV nonsmall cell lung cancer * last chemo on 09/04 - on carboplatin and protein bound paclitaxel weekly regimen * Scheduled once a week with 1 week gap every 3 weeks * so far underwent 2/3 cycles - we will revaluate after 3 cycles. * Fever and night sweats at basliene - continue tylenol * follows DVT prophylaxis * Sc lovenox Code Status * Full Code Problem List: 1. Hypersensitive carotid sinus syndrome 2. Vasovagal syncope 3. Dehydration 4. Symptomatic anemia 5. Lung cancer metastatic to bone Pain Ratin Pain Location: n/a Pain Goal: Pain 4 or less Pain Plan: tylenol prn Tomorrow's Labs & Rationales: bep to monitor lytes cbc to monitor H&H
[2016-09-12 08:11] LABS: ABSOLUTE BASOPHIL COUNT 0 /CUMM (0.0-0.2); ABSOLUTE EOSINOPHIL COUNT 0 /CUMM (0.0-0.7); ABSOLUTE GRANULOCYTE CT 5.5 /CUMM (1.4-6.5); ABSOLUTE LYMPH COUNT 1.1 /CUMM (1.2-3.4); ABSOLUTE MONOCYTE COUNT 1.1 /CUMM (0.10-0.60); BASOPHIL % 0.6 % (0.0-2.0); EOSINOPHIL % 0.5 % (0-5); GRANULOCYTE % 70.5 % (42.2-75.2); HEMATOCRIT 28.5 % (42-52); MEAN CORPUSCULAR HGB CONC 32.3 G/DL (33.0-37.0); MEAN CORPUSCULAR VOLUME 83.6 FL (80.0-94.0); MEAN PLATELET VOLUME 5.9 FL (7.4-10.4); PLATELET COUNT 615 /CUMM (130-400); RED BLOOD CELL CT 3.42 /CUMM (4.70-6.10); WHITE BLOOD CELL COUNT 7.8 /CUMM (4.8-10.8)
[2016-09-12 08:25] VITALS: BP 120/70
[2016-09-12 08:49] LABS: PT 17.5 SEC (9.4-12.5)
--- NOTE | 2016-09-12 09:17 | PN- Att Addend ---
Attending Addendum Attending Brief Note Patient has no complaints this morning. General Appearance: Alert, No Acute Distress Skin: Grossly normal HEENT: PEERLA Neck: Supple, No JVD Cardiovascular: Regular Rate, Normal S1, Normal S2, No Murmurs Lungs: Clear to Auscultation, Normal Air Movement Abdomen: Normal Bowel Sounds, Soft, No Tenderness Neurological: Normal Speech, Strength at 5/5 X4 Ext, Cranial Nerves 3-12 NL, Reflexes 2+ Extremities: No Clubbing, No Cyanosis, No Edema Vascular: Normal Pulses Assessment 51-year-old male with history of recently diagnosed lung cancer currently on chemotherapy presenting status post syncopal episodes 2. Apparently patient has hypersensitive carotid sinus was elicited. Plan for pacemaker placement. Repeat orthostatics negative and anemia stable Plan Pacemaker placement today Ferrous sulfate twice a day Continue other home meds and supportive care Encourage by mouth fluids Current Medications Sig/Fernando Start time Last Medication Dose Route Stop Time Status Admin Acetaminophen 650 MG Q6P PRN 09/10 1745 AC PO Sodium Chloride 1,000 ML Q20H 09/10 1830 DC 09/10 IV 2006 Laboratory Tests 09/12 09/12 0730 0605 Coagulation PT (9.4 - 12.5 SEC) 17.5 H INR (0.90 - 1.17) 1.68 H Hematology CBC w Diff NO MAN DIFF REQ WBC (4.8 - 10.8 /CUMM) 7.8 RBC (4.70 - 6.10 /CUMM) 3.42 L Hgb (14.0 - 18.0 G/DL) 9.2 L Hct (42 - 52 %) 28.5 L MCV (80.0 - 94.0 FL) 83.6 MCH (27.0 - 31.0 PG) 27.0 RDW (11.5 - 14.5 %) 18.0 H Plt Count (130 - 400 /CUMM) 615 H MPV (7.4 - 10.4 FL) 5.9 L Gran % (42.2 - 75.2 %) 70.5 Lymphocytes % (20.5 - 51.1 %) 14.6 L Monocytes % (1.7 - 9.3 %) 13.8 H Eosinophils % (0 - 5 %) 0.5 Basophils % (0.0 - 2.0 %) 0.6 Absolute Granulocytes (1.4 - 6.5 /CUMM) 5.5 Absolute Lymphocytes (1.2 - 3.4 /CUMM) 1.1 L Absolute Monocytes (0.10 - 0.60 /CUMM) 1.1 H Absolute Eosinophils (0.0 - 0.7 /CUMM) 0 Absolute Basophils (0.0 - 0.2 /CUMM) 0 PUBS MCHC (33.0 - 37.0 G/DL) 32.3 L Vital Signs Date Time Temp Pulse Resp B/P Pulse O2 O2 Flow FiO2 Ox Delivery Rate 09/12 0825 98.3 106 16 120/70 95 Room Air 09/12 0800 Room Air 09/12 0000 97 Room Air 09/11 2331 97.7 118 18 106/62 96 Room Air 09/11 1629 97.1 111 18 116/76 95 Room Air
--- NOTE | 2016-09-12 10:47 | RADIOLOGY REPORT ---
XR CHEST CLINICAL INFORMATION: Dual-lead pacemaker insertion on the left side in the operating room. COMPARISON: Chest x-ray 05/08/2016. TECHNIQUE: 2 intraoperative fluoroscopic images were obtained for pacemaker insertion. FLUORO TIME: 6 minutes. FINDINGS/IMPRESSION: Partially imaged pacemaker leads project over the expected location of the right atrium and right ventricle. The imaged leads appear intact. I cannot assess for pneumothorax on this coned in study. Lungs are not well assessed secondary to technique though the kimi appear prominent. A follow-up diagnostic chest x-ray has been ordered for more diagnostic assessment.
--- NOTE | 2016-09-12 11:08 | RADIOLOGY REPORT ---
EXAMINATION: XR PORTABLE CHEST CLINICAL INFORMATION: Status post pacemaker placement. COMPARISON: Chest x-ray 05/08/2016, CT chest 04/28/2016 , CT neck 09/11/2016 TECHNIQUE: Portable AP view of the chest was obtained. FINDINGS: There is a large irregular right hilar opacity. No pneumothorax. No pleural effusion. Heart size normal. 2-lead cardiac device is present. IMPRESSION: 1. No pneumothorax status post pacemaker placement. 2. Large right hilar opacity, markedly increased in size since CT chest 04/28/2016. Consider repeat chest CT to evaluate extent of mass.
--- NOTE | 2016-09-12 11:20 | Cons- Thoracic Surgery ---
General Information and HPI Consulting Request Date of Consult: 09/11/16 Requested By: MOUNIKA JONES,KATHRYN Yin MD Reason for Consult: Evaluate for permanent pacemaker placement Source of Information: patient, family, old records, PCP Exam Limitations: language barrier History of Present Illness: The patient is a 51-year-old gentleman admitted after a syncopal episode. 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 He had a full syncopal episode while ambulating in the grocery store with a prodrome of dizziness and flushing. During evaluation on admission he had a 6 second pause on telemetry during carotid massage. He is referred for consideration for permanent pacemaker placement for his vasovagal syncope. Allergies/Medications Allergies: Coded Allergies: NO KNOWN ALLERGIES (01/22/11) Home Med List: Acetaminophen (Mapap) 325 MG TABLET 2 TAB PO Q4H PRN PAIN/FEVER (Reported) Current Medications: Current Medications Sig/Fernando Start time Last Medication Dose Route Stop Time Status Admin Acetaminophen 650 MG Q6P PRN 09/12 1030 AC PO Acetaminophen 650 MG Q6P PRN 09/10 1745 DC PO Cefazolin Sodium 2 GM IQ8 09/12 1600 AC N/A 1 UNIT IV 09/13 0029 Morphine Sulfate 2 MG Q2P PRN 09/12 1030 AC IV Oxycodone/ 1 TAB Q4P PRN 09/12 1030 AC Acetaminophen PO Oxycodone/ 2 TAB Q4P PRN 09/12 1030 AC Acetaminophen PO Patient Medication 1 UNIT ONE NR 09/12 1045 AC Teaching ED 09/12 1645 Sodium Chloride 1,000 ML Q20H 09/10 1830 DC 09/10 IV 2007 Past History Medical History Blood Transfusion Hx: No Neurological: NONE EENT: NONE Cardiovascular: NONE, VASOVAGAL Respiratory: LUNG CA Gastrointestinal: NONE Hepatic: NONE Renal: NONE Musculoskeletal: NONE Psychiatric: NONE Endocrine: NONE Blood Disorders: anemia 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 Home Who Do You Live With? spouse, child Services at Home: None Smoking Status: Former Smoker ETOH Use: denies use Illicit Drug Use: denies illicit drug use Functional Ability ADLs Independent: dressing, eating, toileting, bathing. Ambulation: independent IADLs Independent: shopping, housework, finances, food prep, telephone, transportation , medication admin. Review of Systems Review of Systems: He has had no chest pain no dyspnea and no palpitations. During his episodes he describes lightheadedness and a flushing sensation. He has no memory loss associated with the episodes. The rest of his 12 point review of systems unremarkable. Exam & Diagnostic Data Vital Signs and I&O Vital Signs Date Time Temp Pulse Resp B/P Pulse O2 O2 Flow FiO2 Ox Delivery Rate 09/12 0825 98.3 106 16 120/70 95 Room Air 09/12 0800 Room Air 09/12 0000 97 Room Air 09/11 2331 97.7 118 18 106/62 96 Room Air 09/11 1629 97.1 111 18 116/76 95 Room Air Intake & Output 09/12 1600 09/12 0800 09/12 0000 09/11 1600 09/11 0800 09/11 0000 Intake Total 800 1217.5 950 1988 Output Total 480 585 895 1521 Balance -480 450 592.5 -850 1988 Intake, Blood 350 Product Intake, IV 297.5 250 1760 Intake, Oral 800 920 350 229 Number 0 Bowel Movements Output, Urine 480 592 062 9720 Patient 150 lb Weight Physical Exam: On examination he is lying in bed comfortably. His skin is warm and well perfused no suspicious lesions noted. The sclerae are anicteric and mucous membranes are moist. There is no subclavicular lymphadenopathy. Cervical lymph node exam is not done because of his presenting history. His breath sounds are clear full bilaterally with no wheezes rhonchi noted. The cardiac exam shows regular rhythm and rate with no murmurs or sounds. His abdomen is soft and nontender with no masses. The periphery shows no cyanosis clubbing or edema. His neurologic exam is grossly normal motor and sensory function. Last 24 Hours of Labs: Laboratory Tests 09/12 09/12 0730 0605 Coagulation PT (9.4 - 12.5 SEC) 17.5 H INR (0.90 - 1.17) 1.68 H Hematology CBC w Diff NO MAN DIFF REQ WBC (4.8 - 10.8 /CUMM) 7.8 RBC (4.70 - 6.10 /CUMM) 3.42 L Hgb (14.0 - 18.0 G/DL) 9.2 L Hct (42 - 52 %) 28.5 L MCV (80.0 - 94.0 FL) 83.6 MCH (27.0 - 31.0 PG) 27.0 RDW (11.5 - 14.5 %) 18.0 H Plt Count (130 - 400 /CUMM) 615 H MPV (7.4 - 10.4 FL) 5.9 L Gran % (42.2 - 75.2 %) 70.5 Lymphocytes % (20.5 - 51.1 %) 14.6 L Monocytes % (1.7 - 9.3 %) 13.8 H Eosinophils % (0 - 5 %) 0.5 Basophils % (0.0 - 2.0 %) 0.6 Absolute Granulocytes (1.4 - 6.5 /CUMM) 5.5 Absolute Lymphocytes (1.2 - 3.4 /CUMM) 1.1 L Absolute Monocytes (0.10 - 0.60 /CUMM) 1.1 H Absolute Eosinophils (0.0 - 0.7 /CUMM) 0 Absolute Basophils (0.0 - 0.2 /CUMM) 0 PUBS MCHC (33.0 - 37.0 G/DL) 32.3 L Assessment/Plan Assessment/Plan The patient is a 51-year-old gentleman undergoing treatment for stage IV lung cancer who presents with multiple episodes of carotid baroreceptor hypersensitivity and associated vasovagal syncope. Given the needs for his medical treatment at a risk-benefit analysis I think a permanent pacemaker is indicated. Given his situation we will go ahead with an MRI compatible device. The risks and benefits of the procedure been explained to the patient and the family and the understand and agree. Copies To: KATHRYN RIBERA MD Consult Acknowledgment - Thank you for your consult request.
--- NOTE | 2016-09-12 11:25 | Operative Report ---
Operative/Inv Procedure Report Surgery Date: 09/12/16 Name of Procedure: MRI compatible dual-chamber pacemaker Pre-Operative Diagnosis: Vasovagal syncope with carotid baroreceptor hypersensitivity Post-Operative Diagnosis: Same Estimated Blood Loss: scant Surgeon/Dormitory Supervisor: Khris Chapin MD Anesthesia: local monitored anesthesi Operative/Procedure Note Note: After placement of monitoring lines the patient's left chest and shoulder were prepped and draped in a sterile fashion. 1% lidocaine was used local anesthetic. Incision was made in the deltopectoral groove and carried down to prepectoralis fascia. Cephalic vein was dissected free and was found to be a fairly large caliber vessel. A small venotomy was made and a guidewire was advanced to the right atrium under fluoroscopic guidance. Sheath dilator with the retained wire was then used to advance a Medtronic pacemaker lead model #[id number] into the pulmonary outflow tract. The lead was withdrawn into the right ventricular chamber and advanced to the apex. R waves were measured at 10.5 mV. The pacing threshold was at 0.3 V with a current of 0.3 mA and impedance of 1168 ohms. Sheath dilator was then passed over the retained wire and a Medtronic preformed atrial lead model #[id number] was then positioned in the right atrial appendage. P waves were measured at 3.3 mV. The pacing threshold was at 0.3 V with a current of 0.2 mA and impedance of 793 ohms. The leads were tied to the cephalic vein which was occluded and then secured to the prepectoralis fascia with Ethibond sutures. A pacemaker pocket was fashioned over the prepectoralis fascia. The leads were then connected to an MRI compatible dual-chamber pacemaker. The pacemaker pocket was irrigated with antibiotic irrigation. Hemostasis was achieved with electrocautery and with surgical clips. The leads and generator were placed in the pocket and the pocket was closed with a running Vicryl suture followed by running Vicryl subcuticular suture. It was dressed with a sterile dressing and a pressure dressing. The patient tolerated procedure well and was brought to the recovery room awake in stable condition. CC: KENTON JONES,DANA Fuller; GILBERT JONES,JULIO REINOSO MD,DEISI RIBERA MD, KATHRYN
[2016-09-12 11:33] VITALS: BP 118/64
--- NOTE | 2016-09-12 11:34 | NUR ---
PT ARRIVED BACK TO FLOOR FROM OR VIA STRETCHER WITH OR NURSE AND DISTRIBUTION AT SIDE. PT A&0X3, VSS, LCW BULKY DRESSING C/D/I. PT HAS NO C/O PAIN AT THIS TIME. PT HOOKED UP TO HEART MONITOR AND SR/ST NOTED ON MONITOR.
--- NOTE | 2016-09-12 11:34 | PN- Cardiology ---
Subjective Subjective: Patient is status post pacemaker placement. He feels well overall. Review of Systems: Eyes no blurred or double vision Ears no deafness or ringing Nose and throat no recurrent sinusitis Lungs per history of present illness Heart per history of present illness Abdomen no nausea vomiting Musculoskeletal occasional muscle and joint pains Psych no anxiety or depression Neuro without recurrent headache or seizures Endocrine no heat or cold intolerance Objective Vital Signs and I&Os Vital Signs Date Time Temp Pulse Resp B/P Pulse O2 O2 Flow FiO2 Ox Delivery Rate 09/12 0825 98.3 106 16 120/70 95 Room Air 09/12 0800 Room Air 09/12 0000 97 Room Air 09/11 2331 97.7 118 18 106/62 96 Room Air 09/11 1629 97.1 111 18 116/76 95 Room Air Intake & Output 09/12 1600 09/12 0800 09/12 0000 09/11 1600 09/11 0809/11 0000 Intake Total 800 1217.5 950 1988 Output Total 480 506 826 7437 Balance -480 450 592.5 -850 1988 Intake, Blood 350 Product Intake, IV 297.5 250 1760 Intake, Oral 800 920 350 229 Number 0 Bowel Movements Output, Urine 480 753 720 5576 Patient 150 lb Weight Physical Exam: Patient is a well-developed well-nourished male appearing in no acute distress HEENT is unremarkable Neck is supple there is no JVD Lungs are clear Heart regular rhythm S1 and S2 are normal no murmurs gallops or rubs Abdomen bowel sounds positive Extremities without edema Current Medications: Current Medications Sig/Fernando Start time Last Medication Dose Route Stop Time Status Admin Acetaminophen 650 MG Q6P PRN 09/12 1030 AC PO Acetaminophen 650 MG Q6P PRN 09/10 1745 DC PO Cefazolin Sodium 2 GM IQ8 09/12 1600 AC N/A 1 UNIT IV 09/13 0029 Ferrous Sulfate 325 MG BID 09/12 2200 AC PO Morphine Sulfate 2 MG Q2P PRN 09/12 1030 AC IV Oxycodone/ 1 TAB Q4P PRN 09/12 1030 AC Acetaminophen PO Oxycodone/ 2 TAB Q4P PRN 09/12 1030 AC Acetaminophen PO Patient Medication 1 UNIT ONE NR 09/12 1045 AC Teaching ED 09/12 1645 Sodium Chloride 1,000 ML Q20H 09/10 1830 DC 09/10 IV 2007 Results Last 48 Hrs of Labs/Mics: Laboratory Tests 09/12/16 0730: CBC w Diff NO MAN DIFF REQ, RBC 3.42 L, MCV 83.6, MCH 27.0, RDW 18.0 H, MPV 5.9 L, Gran % 70.5, Lymphocytes % 14.6 L, Monocytes % 13.8 H, Eosinophils % 0.5, Basophils % 0.6, Absolute Granulocytes 5.5, Absolute Lymphocytes 1.1 L, Absolute Monocytes 1.1 H, Absolute Eosinophils 0, Absolute Basophils 0, PUBS MCHC 32.3 L 09/12/16 0605: PT 17.5 H, INR 1.68 H 09/11/16 0420: Anion Gap 10, Estimated GFR > 60, BUN/Creatinine Ratio 7.5, Calcium 9.5, Iron 26 L, TIBC 182 L, Ferritin 995.0 H, CBC w Diff NO MAN DIFF REQ, RBC 3.26 L, MCV 83.1, MCH 26.6 L, RDW 17.4 H, MPV 5.9 L, Gran % 66.5, Lymphocytes % 18.5 L, Monocytes % 14.2 H, Eosinophils % 0.5, Basophils % 0.3, Absolute Granulocytes 5.0, Absolute Lymphocytes 1.4, Absolute Monocytes 1.1 H, Absolute Eosinophils 0 , Absolute Basophils 0, PUBS MCHC 32.0 L 09/11/16 0400: CBC w Diff Cancelled, WBC Cancelled, RBC Cancelled, Hgb Cancelled, Hct Cancelled , MCV Cancelled, MCH Cancelled, RDW Cancelled, Plt Count Cancelled, MPV Cancelled, PUBS MCHC Cancelled 09/10/16 1819: Lactic Acid Cancelled 09/10/16 1534: Anion Gap 14, Estimated GFR > 60, BUN/Creatinine Ratio 14.0, Glucose 204 H, Lactic Acid 1.6, Calcium 10.5 H, Total Bilirubin 0.3, AST 16 L, ALT 50, Alkaline Phosphatase 199 H, Troponin I < 0.01, Total Protein 6.8, Albumin 3.1 L, Globulin 3.7, Albumin/Globulin Ratio 0.8 L, CBC w Diff NO MAN DIFF REQ, RBC 2.63 L, MCV 81.3, MCH 25.6 L, RDW 18.6 H, MPV 5.8 L, Gran % 78.2 H, Lymphocytes % 13.9 L, Monocytes % 7.6, Eosinophils % 0.2, Basophils % 0.1, Absolute Granulocytes 7.1 H, Absolute Lymphocytes 1.3, Absolute Monocytes 0.7 H, Absolute Eosinophils 0, Absolute Basophils 0, PUBS MCHC 31.5 L Recent Imaging Studies: Echocardiogram CONCLUSIONS Left ventricular cavity size normal. Left ventricular wall thickness at upper limits of normal. No obvious regional wall motion abnormalities. Left ventricular ejection fraction is estimated at 60 %. Normal right ventricular size and function. Unable to estimate the right ventricular systolic pressure. Minimal pericardial effusion. Rodrigo Yin M.D. Assessment/Plan Assessment/Plan 1. Recurrent presyncope/syncope likely due to prolonged sinus pauses with carotid baroreceptor hypersensitivity now status post Medtronic dual-chamber Pacemaker. 2. Stage IV non-small cell lung cancer undergoing chemotherapy 3. Acute on chronic anemia 4. Sinus tachycardia likely due to anemia with a component of dehydration 5. Echocardiogram demonstrated normal LV function Recommendations 1. Would continue to monitor on telemetry 2. Since it is felt that his tachycardia may be secondary to anemia and a component of dehydration would not treat at present. 3. If patient remains stable plan is for probable discharge in the morning 4. Encourage fluids Continue telemetry? Yes
[2016-09-12 16:05] VITALS: BP 130/75
--- NOTE | 2016-09-12 16:09 | Patient Discharge Instructions ---
Discharge Instructions General Discharge Information You were seen/treated for: Vasovagal syncope and carotid hyersensitivity You had these procedures: Pacemaker placement Watch for these problems: Any sudden loss of consciousness, dizziness, lightheadedness, Special Instructions: Please follow up with in a week Please follow up with in a week regarding pacemaker and new medication(metoprolol) Please follow up with in a week Diet Continue normal diet: Yes Activity Full Activity/No Limits: Yes Acute Coronary Syndrome Inclusion Criteria At DC or during hospital stay patient has or had the following: ACS DIAGNOSIS No Discharge Core Measures Meds if any: Prescribed or Continued at Discharge Meds if any: NOT Prescribed or Continued at Discharge Congestive Heart Failure Inclusion Criteria At DC or during hospital stay patient has or had the following: CHF DIAGNOSIS No Discharge Core Measures Meds if any: Prescribed or Continued at Discharge Meds if any: NOT Prescribed or Continued at Discharge Cerebrovascular accident Inclusion Criteria At DC or during hospital stay patient has or had the following: CVA/TIA Diagnosis No Discharge Core Measures Meds if any: Prescribed or Continued at Discharge Meds if any: NOT Prescribed or Continued at Discharge Venous thromboembolism Inclusion Criteria VTE Diagnosis No VTE Type NONE VTE Confirmed by (Test) NONE Discharge Core Measures - Per Current guidelines, there needs to be overlap - treatment for the first 5 days of Warfarin therapy. - If discharged on Warfarin prior to 5 days of - overlap therapy, the patient will need to be - assessed for post discharge needs including - *Post discharge parental anticoagulation - *Warfarin and/or parental anticoagulation education - *Follow up date to check INR post discharge At least 5 days overlap therapy as Inpatient No Meds if any: Prescribed or Continued at Discharge Note: Overlap Therapy is Warfarin and Anticoagulant Meds if any: NOT Prescribed or Continued at Discharge
[2016-09-13 00:12] VITALS: BP 100/60
[2016-09-13 07:55] VITALS: BP 120/69
--- NOTE | 2016-09-13 08:17 | PN- Housestaff ---
Subjective Follow-up For: Carotid sinus syndrome Symptomatic anemia Tele-Events Since Last Visit: sinus tachy 112-124, No overnight events. Subjective: I saw and examined the patient today. He remians stable. offers no concerns. No chest pain, dizziness, palpitations. Review of Systems Constitutional: Reports: see HPI. Comments: ROS negative except the above. Objective Last 24 Hrs of Vital Signs/I&O Vital Signs Date Time Temp Pulse Resp B/P Pulse O2 O2 Flow FiO2 Ox Delivery Rate 09/13 0755 99.3 108 20 120/69 94 09/13 0012 98.1 122 18 100/60 94 Room Air 09/12 1605 99.8 117 16 130/75 95 Part ReBreather 09/12 1133 97.4 89 16 118/64 95 Room Air 09/12 0825 98.3 106 16 120/70 95 Room Air Intake & Output 09/13 1600 09/13 0800 09/13 0000 Intake Total 150 720 Output Total 800 Balance -650 720 Intake, IV 150 120 Intake, Oral 600 Output, Urine 800 Physical Exam General Appearance: Alert, Oriented X3, Cooperative Skin: No Rashes, No Breakdown HEENT: Atraumatic, PERRLA, EOMI Cardiovascular: Regular Rate, Normal S1, Normal S2, No Murmurs Lungs: Clear to Auscultation, Normal Air Movement Abdomen: Normal Bowel Sounds, Soft, No Tenderness Neurological: Normal Gait, Normal Speech, Normal Tone, Sensation Intact Extremities: No Clubbing, No Cyanosis Current Medications: Current Medications Sig/Fernando Start time Last Medication Dose Route Stop Time Status Admin Acetaminophen 650 MG Q6P PRN 09/12 1030 AC PO Cefazolin Sodium 2 GM IQ8 09/12 1600 DC 09/13 N/A 1 UNIT IV 09/13 0029 0130 Ferrous Sulfate 325 MG BID 09/12 2200 AC 09/12 PO 2135 Metoprolol Tartrate 12.5 MG BID 09/13 1000 AC PO Morphine Sulfate 2 MG Q2P PRN 09/12 1030 AC IV Oxycodone/ 1 TAB Q4P PRN 09/12 1030 AC Acetaminophen PO Oxycodone/ 2 TAB Q4P PRN 09/12 1030 AC Acetaminophen PO Patient Medication 1 UNIT ONE NR 09/12 1045 DC Teaching ED 09/12 1645 Lines/Diet/Fluids Lines: peripheral lines Assessment/Plan Assessment: Patient is a 51 YO M Former smoker (30+ pack yr) with PMH significant for stage IV nonsmall cell lung cancer s/p RT, undergoing chemotherapy currently came to the ER after having a syncopal episode while shopping today. ER Course Vital Signs Afebrile, HR 118, RR 20, HR 113, BP 140/81mmHg Significant labs H7H 6.7/21.4 Calcium 10.5, ALP 199, AST/ALT - 16/50 - back to baseline. blood cultures sent. Plan Syncope - Carotid sinus hypersenstivity syndrome. * Intially thought secondary to anemia/dehydration, but conformied with evident pauses on carotid massage. * Medtronic dual chamber pacemaker in place. * Received a single dose of cefazoline before procedure. * ECHO - EF 60% with minimal pericardial effusion. * CTA Head and neck didnt show any stenosis, but did show increasing lung mass obstruciting right side leading to post obstructive pneumonitis. * Hb improved to 8.7 after transfusing 2 units. Sinus Tachycardia * He is found to have HR around 110 - 120, occasionally went to 130's. Intially thought secondary to anemia and dehydration. * As heart rate barely came into control with transfusion and rehydration, thought of thyroid vs pericardial metastasis. * He was started on Metoprolol tartarate 12.5BID - need to follow up with in a week. * 09/13/16 - TSH - 0.593, free T4 - pending history of stage IV nonsmall cell lung cancer * last chemo on 09/04 - on carboplatin and protein bound paclitaxel weekly regimen * Scheduled once a week with 1 week gap every 3 weeks * so far underwent 2/3 cycles - we will revaluate after 3 cycles. * Fever and night sweats at basliene - continue tylenol * follows DVT prophylaxis * Ia lovenox Code Status * Full Code Problem List: 1. 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 Symptomatic anemia Pain Ratin Pain Location: n/a Pain Goal: Pain 4 or less Pain Plan: tylenol Tomorrow's Labs & Rationales: none
--- NOTE | 2016-09-13 09:11 | PN- Att Addend ---
Attending Addendum Attending Brief Note Patient has no complaints this morning. General Appearance: Alert, No Acute Distress Skin: Grossly normal HEENT: PEERLA Neck: Supple, No JVD Cardiovascular: Regular Rate, Normal S1, Normal S2, No Murmurs Lungs: Clear to Auscultation, Normal Air Movement Abdomen: Normal Bowel Sounds, Soft, No Tenderness Neurological: Normal Speech, Strength at 5/5 X4 Ext, Cranial Nerves 3-12 NL, Reflexes 2+ Extremities: No Clubbing, No Cyanosis, No Edema Vascular: Normal Pulses Assessment 51-year-old male with history of recently diagnosed lung cancer currently on chemotherapy presenting status post syncopal episodes 2. Apparently patient has hypersensitive carotid sinus was elicited. He is currently status post pacemaker placement day 1 without complications. He is stable and will be discharged home. Plan Stable for discharge Ferrous sulfate twice a day Continue other home meds and supportive care Encourage by mouth fluids Current Medications Sig/Fernando Start time Last Medication Dose Route Stop Time Status Admin Acetaminophen 650 MG Q6P PRN 09/12 1030 AC PO Acetaminophen 650 MG Q6P PRN 09/10 1745 DC PO Cefazolin Sodium 2 GM IQ8 09/12 1600 DC 09/13 N/A 1 UNIT IV 09/13 0029 0130 Ferrous Sulfate 325 MG BID 09/12 2200 AC 09/12 PO 2135 Morphine Sulfate 2 MG Q2P PRN 09/12 1030 AC IV Oxycodone/ 1 TAB Q4P PRN 09/12 1030 AC Acetaminophen PO Oxycodone/ 2 TAB Q4P PRN 09/12 1030 AC Acetaminophen PO Patient Medication 1 UNIT ONE NR 09/12 1045 DC Teaching ED 09/12 1645 Vital Signs Date Time Temp Pulse Resp B/P Pulse O2 O2 Flow FiO2 Ox Delivery Rate 09/13 0755 99.3 108 20 120/69 94 09/13 0012 98.1 122 18 100/60 94 Room Air 09/12 1605 99.8 117 16 130/75 95 Part ReBreather 09/12 1133 97.4 89 16 118/64 95 Room Air
--- NOTE | 2016-09-13 09:20 | PN- Pulmonary ---
Subjective HPI/Critical Care Issues: Doing ok afebrile vss Objective Current Medications: Current Medications Sig/Fernando Start time Last Medication Dose Route Stop Time Status Admin Acetaminophen 650 MG Q6P PRN 09/12 1030 AC PO Acetaminophen 650 MG Q6P PRN 09/10 1745 DC PO Cefazolin Sodium 2 GM IQ8 09/12 1600 DC 09/13 N/A 1 UNIT IV 09/13 0029 0130 Ferrous Sulfate 325 MG BID 09/12 2200 AC 09/12 PO 2135 Morphine Sulfate 2 MG Q2P PRN 09/12 1030 AC IV Oxycodone/ 1 TAB Q4P PRN 09/12 1030 AC Acetaminophen PO Oxycodone/ 2 TAB Q4P PRN 09/12 1030 AC Acetaminophen PO Patient Medication 1 UNIT ONE NR 09/12 1045 DC Teaching ED 09/12 1645 Laboratory Tests 09/12 09/12 0730 0605 Coagulation PT (9.4 - 12.5 SEC) 17.5 H INR (0.90 - 1.17) 1.68 H Hematology CBC w Diff NO MAN DIFF REQ WBC (4.8 - 10.8 /CUMM) 7.8 RBC (4.70 - 6.10 /CUMM) 3.42 L Hgb (14.0 - 18.0 G/DL) 9.2 L Hct (42 - 52 %) 28.5 L MCV (80.0 - 94.0 FL) 83.6 MCH (27.0 - 31.0 PG) 27.0 RDW (11.5 - 14.5 %) 18.0 H Plt Count (130 - 400 /CUMM) 615 H MPV (7.4 - 10.4 FL) 5.9 L Gran % (42.2 - 75.2 %) 70.5 Lymphocytes % (20.5 - 51.1 %) 14.6 L Monocytes % (1.7 - 9.3 %) 13.8 H Eosinophils % (0 - 5 %) 0.5 Basophils % (0.0 - 2.0 %) 0.6 Absolute Granulocytes (1.4 - 6.5 /CUMM) 5.5 Absolute Lymphocytes (1.2 - 3.4 /CUMM) 1.1 L Absolute Monocytes (0.10 - 0.60 /CUMM) 1.1 H Absolute Eosinophils (0.0 - 0.7 /CUMM) 0 Absolute Basophils (0.0 - 0.2 /CUMM) 0 PUBS MCHC (33.0 - 37.0 G/DL) 32.3 L Microbiology Date/Time Procedure - Status Source Growth 09/10 164 Blood Culture - RES BLOOD 09/10 161 Blood Culture - RES BLOOD Vital Signs & I&O Last 24 Hrs of Vitals and I&O: Vital Signs Date Time Temp Pulse Resp B/P Pulse O2 O2 Flow FiO2 Ox Delivery Rate 09/13 0755 99.3 108 20 120/69 94 09/13 0012 98.1 122 18 100/60 94 Room Air 09/12 1605 99.8 117 16 130/75 95 Part ReBreather 09/12 1133 97.4 89 16 118/64 95 Room Air Intake & Output 09/13 1600 09/13 0800 09/13 0000 Intake Total 150 720 Output Total 800 Balance -650 720 Intake, IV 150 120 Intake, Oral 600 Output, Urine 800 Impression/Plan Impression/Plan Impression/Plan: Physical Exam: General: no apparent distress. Alert. Eyes: No obvious scleral icterus. HEENT: No jugular venous distention or abnormal jugular venous pulsations. Cardiovascular: Normal intensity S1/S2. PMI not grossly displaced. Respiratory: Lungs clear to auscultation bilaterally. Abdomen: Soft, nontender with no guarding or rebound tenderness. Musculoskeletal: No clubbing or cyanosis noted, no edema Skin: warm Neurologic: No gross focal deficits noted. IMPRESSION This is a gentleman with stage IV non-small cell lung cancer with metastasis to the hip with acute on chronic anemia, recent chemotherapy, Now has Recurrent syncope with significant pause s/p pacer Ongoing treatment for lung cancer No significant stenosis of the carotid artery Right hilar large mass which seems to be increasing with right upper lobe obstruction despite rx REduced pulmonary reserve Postobstructive right upper lobe collapse with no bacterial evidence pneumonia Progressive subcarinal right and rt paraTracheal, mediastinal lymphadenopathy despite chemotherapy. Patient is now status post 2 cycles of chemotherapy / and radiation to the hip. RECOMMENDATION Doing well s/p pacer WIll follow as out pt stable
[2016-09-13] MEDS ORDERED: METOPROLOL TART25 M1 PO (09:45)
[2016-09-13] MEDS ORDERED: FERROUS SULFAT325 M2 PO (10:00)
[2016-09-13 11:40] VITALS: BP 120/70
--- NOTE | 2016-09-13 11:45 | PN- Cardiology ---
Subjective Subjective: Patient feels well this morning. Offers no complaints. Objective Vital Signs and I&Os Vital Signs Date Time Temp Pulse Resp B/P Pulse O2 O2 Flow FiO2 Ox Delivery Rate 09/13 0755 99.3 108 20 120/69 94 09/13 0012 98.1 122 18 100/60 94 Room Air 09/12 1605 99.8 117 16 130/75 95 Part ReBreather Intake & Output 09/13 0809/13 0000 09/12 1600 09/12 0809/12 0000 Intake Total 150 720 420 800 Output Total 800 480 350 Balance -650 720 420 -480 450 Intake, IV 150 120 Intake, Oral 600 420 800 Output, Urine 800 480 350 Patient 150 lb Weight Physical Exam: General: no apparent distress. Alert. Eyes: No obvious scleral icterus. HEENT: No jugular venous distention or abnormal jugular venous pulsations. Cardiovascular: Normal intensity S1/S2. Pacemaker noted Respiratory: No rales or rhonchi Abdomen: Soft, nontender with no guarding or rebound tenderness. Musculoskeletal: No clubbing or cyanosis noted, no edema Skin: Warm Current Medications: Current Medications Sig/Fernando Start time Last Medication Dose Route Stop Time Status Admin Acetaminophen 650 MG Q6P PRN 09/12 1030 AC PO Cefazolin Sodium 2 GM IQ8 09/12 1600 DC 09/13 N/A 1 UNIT IV 09/13 0029 0130 Ferrous Sulfate 325 MG BID 09/12 2200 AC 09/13 PO 1039 Metoprolol Tartrate 12.5 MG BID 09/13 1000 AC 09/13 PO 1140 Morphine Sulfate 2 MG Q2P PRN 09/12 1030 AC IV Oxycodone/ 1 TAB Q4P PRN 09/12 1030 AC Acetaminophen PO Oxycodone/ 2 TAB Q4P PRN 09/12 1030 AC Acetaminophen PO Patient Medication 1 UNIT ONE NR 09/12 1045 DC Teaching ED 09/12 1645 Results Last 48 Hrs of Labs/Mics: Laboratory Tests 09/12/16 0730: CBC w Diff NO MAN DIFF REQ, RBC 3.42 L, MCV 83.6, MCH 27.0, RDW 18.0 H, MPV 5.9 L, Gran % 70.5, Lymphocytes % 14.6 L, Monocytes % 13.8 H, Eosinophils % 0.5, Basophils % 0.6, Absolute Granulocytes 5.5, Absolute Lymphocytes 1.1 L, Absolute Monocytes 1.1 H, Absolute Eosinophils 0, Absolute Basophils 0, PUBS MCHC 32.3 L 09/12/16 0605: PT 17.5 H, INR 1.68 H Recent Imaging Studies: Telemetry tracings were personally reviewed and shows sinus rhythm/sinus tachycardia with ventricular pacing during pacemaker check Echocardiogram Left ventricular cavity size normal. Left ventricular wall thickness at upper limits of normal. No obvious regional wall motion abnormalities. Left ventricular ejection fraction is estimated at 60 %. Normal right ventricular size and function. Unable to estimate the right ventricular systolic pressure. Minimal pericardial effusion. Rodrigo Yin M.D. (Electronically Signed) Final Date: 11 September 2016 23:32 CXR 1. No pneumothorax status post pacemaker placement. 2. Large right hilar opacity, markedly increased in size since CT chest 04/28/2016. Consider repeat chest CT to evaluate extent of mass. Pacemaker interrogation personally reviewed shows normally functioning device Assessment/Plan Assessment/Plan 1. Recurrent presyncope/syncope likely due to prolonged sinus pauses with carotid baroreceptor hypersensitivity now status post Medtronic dual-chamber Pacemaker. 2. Stage IV non-small cell lung cancer undergoing chemotherapy 3. Acute on chronic anemia 4. Sinus tachycardia likely due to anemia with a component of dehydration 5. Echocardiogram demonstrated normal LV function Patient doing well status post dual-chamber pacemaker. Currently asymptomatic. Remains hemodynamically stable. Telemetry tracing shows sinus rhythm and sinus tachycardia with ventricular pacing during the pacemaker check. Discussed with house staff, recommend starting low-dose metoprolol 12.5 mg by mouth twice a day. No evidence of pneumothorax on chest x-ray. Patient is instructed to follow-up in my office within one week of discharge. Tirso Yin MD [facility] Continue telemetry? No
--- NOTE | 2016-09-13 15:09 | Discharge Summary ---
Visit Information Visit Dates Admission Date: 09/10/16 Discharge Date: 09/13/16 Hospital Course Course Attending Physician: KATHRYN RIBERA MD Primary Care Physician: ANDERSON SINGH MD Consulting Request: 1 Consulting Specialty: Cardiology Consulting Physician: Reason for Consult: Carotid sinus hypersensitivity Consulting Request: 2 Consulting Specialty: Thoracic/Vascular Surgery Consulting Physician: Reason for Consult: Pacemaker placement Consulting Request: 3 Consulting Specialty: Pulmonary Disease Consulting Physician: Reason for Consult: lung cancer Consulting Request: 4 Consulting Specialty: Hematology/Oncology Consulting Physician: Reason for Consult: Hematology/Oncology Hospital Course: Patient is a 51 YO M Former smoker (30+ pack yr) with PMH significant for stage IV nonsmall cell lung cancer s/p RT, undergoing chemotherapy currently came to the ER after having a syncopal episode while shopping today. ER Course Vital Signs Afebrile, HR 118, RR 20, HR 113, BP 140/81mmHg Othostatics positive on the day of admission, Negative second day. Significant labs H7H 6.7/21.4 Calcium 10.5, ALP 199, AST/ALT - 16/50 - back to baseline. blood cultures sent. Plan Syncope - Carotid sinus hypersenstivity syndrome. Initially thought secondary to dehydration/anemia, but eventually found secondary to spontaneous hypersensitive carotids. He underwent placement Medtronic dual chamber pacemaker on 09/12/16. Received cefazoline pre - procedure to prevent infections. ECHO shows LV EF 60% with minimal pericardial effusion. CTA Head and neck didnt show any stenosis, but did show increasing lung mass obstruciting right side leading to post obstructive pneumonitis. Hb improved to 8.7 after transfusing 2 units. Sinus Tachycardia He is found to have HR around 110 - 120, occasionally went to 130's. Intially thought secondary to anemia and dehydration. As heart rate barely came into control with transfusion and rehydration, thought of thyroid vs pericardial metastasis. He was started on Metoprolol tartarate 12.5BID - need to follow up with in a week. 09/13/16 - TSH - 0.593, free T4 - 1.23 --> Need to repeat in 3 months. history of stage IV nonsmall cell lung cancer (follows ) last chemo on 09/04 - on carboplatin and protein bound paclitaxel weekly regimen. Scheduled once a week with 1 week gap every 3 weeks, so far underwent 2/3 cycles - we will revaluate after 3 cycles. Fever and night sweats at basliene - on Tylenol. DVT prophylaxis * Sc lovenox Code Status * Full Code Complications: none Allergies: Coded Allergies: NO KNOWN ALLERGIES (01/22/11) Significant Procedures: Medtronic dual chamber pacemaker palcement on 09/12/16 Pertinent Lab Results: ECHO shows LV EF 60% with minimal pericardial effusion. CTA Head and neck didnt show any stenosis, but did show increasing lung mass obstruciting right side leading to post obstructive pneumonitis. Hb improved to 8.7 after transfusing 2 units. TSH is 0.593 and free T4 Disposition Summary Disposition Principal Diagnosis: Carotid sinus hypersensitivity syndrome Additional Diagnosis: Stage IV lung cancer Discharge Disposition: home or self care Discharge Instructions General Discharge Information Code Status: Full Code Patient's Diet: Regular diet Patient's Activity: activity as tolerated Follow-Up Instructions/Appts: Please follow up with in a week please follow up with in a week Please follow up with in a week regarding pacemaker and new heart rate medication. Follow up regarding your TFT's in 3 months. Medications at Discharge Discharge Medications: Continue taking these medications: Acetaminophen (Mapap) 325 MG TABLET 2 Tablet ORAL Q4H as needed for PAIN/FEVER Qty = 150 Comments: NOT GIVEN IN HOSPITAL Start taking the following new medications: Metoprolol Tartrate (Metoprolol Tartrate) 25 MG TABLET 12.5 Milligram ORAL TWICE DAILY Qty = 30 No Refills Comments: Last Taken: 09/13 Time: 11AM Ferrous Sulfate (Ferrous Sulfate) 325 MG (65 MG IRON) TABLET. 325 Milligram ORAL TWICE DAILY Qty = 60 No Refills Comments: Last Taken: 09/13 Time: 9AM Copies To: KENTON JONES,[facility] HUNT [facility]; BLAIRE SOLITARIO MD Attending Review Statement Documenting Attending: BLAIRE SOLITARIO MD
== END 2016-09-13 13:58 | DRG 171 ==
LOC: ENRESERVDT → ENRESERVTM → ERH 14:27 → 1NO 17:56 → ENPENDDIS 17:56 → ERHI 17:56 → 1NO 17:56
PROVIDERS: Physician Assistant Medical; Preventive Medicine Public Health & General Preventive Medicine; Student in an Organized Health Care Education/Training Program; ADMIT Internal Medicine
PROC: 30283B1 Transfusion of Nonautologous 4-Factor Prothrombin Complex Concentrate into Vein, Percutaneous Approach (ICD-10-PCS; 2016-09-10)
PROC: 0JH606Z Insertion of Pacemaker, Dual Chamber into Chest Subcutaneous Tissue and Fascia, Open Approach (ICD-10-PCS; principal; 2016-09-12)
PROC: 02HK3JZ Insertion of Pacemaker Lead into Right Ventricle, Percutaneous Approach (ICD-10-PCS; principal; 2016-09-12)
PROC: 02H63JZ Insertion of Pacemaker Lead into Right Atrium, Percutaneous Approach (ICD-10-PCS; principal; 2016-09-12)
DX: G90.01 Carotid sinus syncope (principal); C79.51 Secondary malignant neoplasm of bone; D64.81 Anemia due to antineoplastic chemotherapy; E83.52 Hypercalcemia; C34.90 Malignant neoplasm of unspecified part of unspecified bronchus or lung; I95.1 Orthostatic hypotension; Z87.891 Personal history of nicotine dependence; R00.0 Tachycardia, unspecified
CPT/HCPCS: 1NSP; 36415; 82436; 86920; 87040; 93005; 93010; 93306; C1785; C1898; J0690; J1644; P9016